=== PATIENT | male | born 1950 | race Caucasian/White ===

== ENCOUNTER → 2021-10-07 09:22 | Outpatient (CLI) | payer MEDICARE, SELFPAY ==
--- NOTE | ~2021-10-07 | XR_ITS ---
EXAMINATION: XR shoulder RT min 2V EXAM DATE: 10/07/2021 09:35 INDICATION: M25.511 - Pain in right shoulder. TECHNIQUE: The following right shoulder projections obtained: frontal projection with internal rotati on, frontal projection with external rotation, Grashey, and axillary (4+ views). There is no prior s tudy for comparison. FINDINGS: There is moderate to severe right glenohumeral joint, moderate acromioclavicular joint prim min osteoarthritis. Calcification along the rotator cuff adjacent to the greater tuberosity, probabl y calcific tendinosis. There are no acute fractures identified. No radiopaque foreign bodies identifi ed. IMPRESSION: 1. 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 2. Calcific tendinosis. Reviewed, dictated and finalized at location B. N ROOM CUSTODIAN
== END ==
PROVIDERS: PCP Family Medicine; Visit Provider Nurse Practitioner Family
DX: M19.011 Primary osteoarthritis, right shoulder (principal); M75.31 Calcific tendinitis of right shoulder
CPT/HCPCS: 73030

== ENCOUNTER → 2022-10-25 10:45 | Outpatient (CLI) | payer MEDICARE, SELFPAY ==
--- NOTE | ~2022-10-25 | US_ITS ---
Renal-Bladder ultrasound Clinical History: UTI Technique: Real-time sonographic imaging of the kidneys and urinary bladder was performed. Findings: The right kidney measures 11.8 cm in length and the left kidney measures 11.8 cm. There is no hydronephrosis or renal calculus identified. Renal cortical echogenicity is within normal limits. No renal mass lesion is identified. The urinary bladder is moderately distended at the time of this exam. There is a 4.7 x 3.7 cm shadowi ng, possibly calcified mass within the urinary bladder. Impression: 4.7 x 3.7 cm shadowing, likely calcified mass in the urinary bladder. Large urinary bladder stone is a likely consideration. Consider CT to further evaluate for soft tissue mass as indicated. Reviewed, dictated and finalized at location . NEL PROCESS SUPERVISOR Impression: 4.7 x 3.7 cm shadowing, likely calcified mass in the urinary bladder. Large uri nary bladder stone is a likely consideration. Consider CT to further evaluate f or soft tissue mass as indicated.
== END ==
PROVIDERS: PCP Family Medicine; Visit Provider Internal Medicine Nephrology
DX: N39.0 Urinary tract infection, site not specified (principal); I10 Essential (primary) hypertension
CPT/HCPCS: 76775

== ENCOUNTER 2022-11-17 08:48 | Outpatient (CLI) | payer MEDICARE, SELFPAY ==
--- NOTE | 2022-11-17 08:57 | ECG_ITS ---
Measurements Intervals [place] Rate: 75 P: 9 WI: 149 QRS: -43 QRSD: 97 T: -14 QT: 401 QTc: 449 Interpretive Statements SINUS RHYTHM LEFT AXIS DEVIATION DELAYED PRECORDIAL R/S TRANSITION VOLTAGE CRITERIA FOR LVH BORDERLINE T WAVE ABNORMALITY- INFERIOR LEADS BASELINE ARTIFACT- I, II, AVR, AVL BORDERLINE ECG NO PREVIOUS ECG AVAILABLE FOR COMPARISON Electronically Signed On 11-17-2022 9:22:47 SCHEDULE CHECKER by Marcio Burton D.O.
== END 2022-11-17 08:49 | disposition home or self-care (01) ==
PROVIDERS: PCP Family Medicine; Visit Provider Urology
DX: I10 Essential (primary) hypertension (principal); Z01.818 Encounter for other preprocedural examination; R94.31 Abnormal electrocardiogram [ECG] [EKG]
CPT/HCPCS: 93005

== ENCOUNTER 2022-11-23 00:42 | Day surgery (SDC) | payer MEDICARE, SELFPAY ==
[2022-11-16 12:08] VITALS: BMI 27.3
--- NOTE | 2022-11-16 12:28 | PC.NURSE ---
Report to the Outpatient Waiting Room, entrance under the green pavilion located off [facility], at time __11:00AM on date ___11/23/22____. Planned Procedure Time: __1:00PM . Time changes happen often and if your time is changed the preop area will call you the afternoon before. - You and your visitor will be asked to self-screen and do not enter if you have any COVID symptoms. - Only one visitor is requested with a max of two and NO children visitors are allowed at this time. - The patient visitor may be requested to leave or wait in car when not with patient due to distancing restrictions. - A mask is optional within the hospital at this time. Patients may have clear liquids (water, carbonated beverages, clear teas, apple juice) until 3 hours prior to surgery with a maximum of 20 ounces. - No food from midnight until time of surgery Take the following medications with a SIP of water the morning of surgery: __AUGMENTIN, CLONIDINE, HYDRALAZINE, METOPROLOL, TRAMADOL NEEDED DO NOT STOP ANY OF YOUR OTHER PRESCRIPTION MEDICATIONS PRIOR TO SURGERY ?EXCEPT THE FOLLOWING Medications to discontinue per physician __HOLD ALL VITAMINS/SUPPLEMENTS AND ASPIRIN 7 DAYS PRE-OP PER DR DAILY (PER PATIENT) Date to take last dose___11/16/22 Please no make-up, nail lao, hairspray, perfume, deodorant, or body powder the day of surgery. No jewelry (including any body piercings) or valuables the day of surgery, leave them at home. Please take a shower or bath the night before, or the morning of, surgery with an antibacterial soap. Wear comfortable, loose fitting clothing. Children are encouraged to wear pajamas. - Jewelry must be removed prior to entering the operating room. Rings and piercings that are not removed may be cut off. - The hospital will not accept responsibility for valuables. - Please leave all valuables, including medications, at home the day of surgery. If you are going home after surgery, a licensed sweeper driver must drive you home. - NO public transportation without another adult if you receive anesthesia. - We recommend that an adult stay with you for 24 hours following discharge. - We also recommend that you do not drive, make important decision, drink alcoholic beverages, or take any drugs that were not prescribed by your health care provider for at least 24 hours after your discharge time. Follow any additional instructions given to you from your surgeon. If you or anyone in your household have experienced Covid symptoms in the past week, please notify your surgeon or the nurse liaison at the phone number below for possible testing. Telephone instructions given to __PATIENT and asked if any additional questions and then verbalized understanding. Patient advised to call surgeon office or pre surgery nurse liaison [phone] if any additional questions.
[2022-11-23] VITALS (11 sets, daily range): BP systolic 140–184; BP diastolic 88–105; PULSE 58–72; RESP 13–20; TEMP 36.1–36.3; O2SAT 97–100
--- NOTE | ~2022-11-23 | XR_ITS ---
EXAMINATION: XR retrograde pyelogram BI DATE: 11/23/2022 12:27 INDICATION: Gross hematuria. TECHNIQUE: 83 intraoperative fluoroscopic images of the abdomen and pelvis were obtained. I was not p resent. Fluoroscopy exposure time was 20 seconds. COMPARISON: Ultrasound 10/25/2022 FINDINGS: There is a large bladder stone. The bilateral retrograde pyelograms are normal. IMPRESSION: 1. Normal bilateral retrograde pyelograms. 2. Large bladder stone. Reviewed, dictated and finalized at location A. TREE FARM WORKER
--- NOTE | 2022-11-23 07:02 | WPDHPUPDATE1 ---
History and Physical Update Update Date/Time: 11/23/22 07:02 History and Physical has been reviewed, including an updated exam of the patient. There are NO changes in the patient's condition. Risks, benefits, and alternatives have been discussed and questions answered. Patient agrees to proceed with procedure.
--- NOTE | 2022-11-23 11:03 | WPDANESEPPF ---
Anes - Initial Pre Proc Eval Procedure: Operation Date: 11/23/22 13:00 Proposed Procedures p Trans Urethral Resection Bladder Tumor - Godfrey Garcia MD s Cystoscopy with Bilateral Retrograde Pyelogram - Godfrey Garcai MD Date/Time: 11/23/22 11:03 Surgeon: Godfrey Garcia MD Pre Op Diagnosis: Gross Hematuria Patient Data Age: 72 Gender: M Height: 1.91 m Weight: 99 kg Allergies Allergy/AdvReac Type Severity Reaction Status Date / Time empagliflozin AdvReac Intermediate UTI's Verified 11/23/22 11:23 [From [facility]ion] Home Medications Medication Instructions Recorded Confirmed Type blood sugar diagnostic (FreeStyle #50 ea 12/20/20 11/23/22 Rx Lite Strips) ascorbic acid (vitamin C) 500 mg 500 mg PO DAILY 11/01/21 11/23/22 History capsule aspirin 81 mg tablet,delayed 81 mg PO DAILY 11/01/21 11/23/22 History release cholecalciferol (vitamin D3) 50 50 mcg PO DAILY 11/01/21 11/23/22 History mcg (2,000 unit) capsule flaxseed oil 250 mg-evening 1 cap PO DAILY 11/01/21 11/23/22 History primrose 125 mg-bilberry 10 mg capsule omega 3,6,9 combination no.7 92 mg 92 mg PO DAILY 11/01/21 11/23/22 History (43 mg-22 [id number]) chew tablet turmeric root extract 500 mg 500 mg PO DAILY 11/01/21 11/23/22 History capsule vitamin E mixed 400 unit capsule 400 unit PO DAILY 11/01/21 11/23/22 History cyanocobalamin (vitamin B-12) 1,000 mcg PO DAILY 01/05/22 11/23/22 History 1,000 mcg tablet (Vitamin B-12) [id number] acid 300 1 tablet PO DAILY 04/10/22 11/23/22 History mcg-lycopene 600 mcg-lutein 300 mcg tablet (Centrum Silver Men) atorvastatin 20 mg tablet 20 mg PO DAILY #30 tabs 05/18/22 11/23/22 Rx tramadol 50 mg tablet 50 mg PO BID PRN pain #30 tabs 08/24/22 11/23/22 Rx metoprolol succinate 200 mg 200 mg PO BID #180 tabs 10/02/22 11/23/22 Rx tablet,extended release 24 hr clonidine HCl 0.2 mg tablet 0.6 mg PO BID #180 tabs 11/14/22 11/23/22 Rx amoxicillin 500 mg-potassium 1 tablet PO Q8H #30 tabs 11/15/22 11/23/22 Rx clavulanate 125 mg tablet (Augmentin) felodipine 10 mg tablet,extended 10 mg PO HS 11/16/22 11/23/22 History release 24 hr metformin 500 mg tablet 1,000 mg PO BID 11/16/22 11/23/22 History semaglutide 7 mg tablet (Rybelsus) 7 mg PO QAM 11/16/22 11/23/22 History valsartan 320 1 tablet PO QAM 11/16/22 11/23/22 History mg-hydrochlorothiazide 25 mg tablet hydralazine 50 mg tablet 50 mg PO TID #90 tabs 11/22/22 11/23/22 Rx Patient hx anesthesia problems: none Family hx anesthesia problems: none Results Review: All pre-operative results and documents have been reviewed as part of the pre-operative evaluation. [facility] Past Medical History Medical History (Updated 11/23/22 @ 11:04 by Jonas Harding, ) Arthritis BMI 27.0-27.9,adult BMI 28.0-28.9,adult BMI 29.0-29.9,adult COVID-19 Essential (primary) hypertension Left knee DJD Liver disease, unspecified Mixed hyperlipidemia EVELINE (obstructive sleep apnea) Primary osteoarthritis of right knee Primary osteoarthritis, right shoulder Type 2 diabetes mellitus without complications Surgical History Surgical History H/O adenoidectomy History of cholecystectomy History of tonsillectomy Status post surgical removal of nail matrix of toe Family History Family History Mother Family history of malignant neoplasm of breast in first degree relative Sibling Hypertension Family history of sleep apnea Father Hypertension Family history of coronary artery disease Sibling No problems noted. Other Cerebrovascular accident Family history of arthritis Family history of cardiovascular disease Social History Social History Smoking status: Never smoker Se
[2022-11-23] MEDS: LACTATED RINGERS 1,000 ML 30 ML IV CONT ×2 (11:20→13:25)
[2022-11-23 11:29] LABS: Glucose Point of Care 290 mg/dl (65-105)
[2022-11-23] MEDS: ceFAZolin 2 GM/D5W 50 ML 2 GM/50 ML BAG IVPB (11:48)
--- NOTE | 2022-11-23 13:25 | W.PM.PROC2 ---
Procedure Note - Detailed Date of Procedure 11/23/22 Pre-op Diagnosis Gross Hematuria Post-op Diagnosis Other (Very large bladder stone) Procedure Performed Cystoscopy with bilateral retrograde pyelography, laser lithotripsy with extraction of a large bladder calculus Surgeon Godfrey Garcia MD Anesthesia General Description of Procedure patient is brought to the operative suite where he is prepped draped in routine sterile fashion while in dorsal lithotomy position after the uneventful induction of a general LMA anesthetic. Cystoscopy is undertaken 1st with a 19 F rigid cystoscope and then later with a 26 F resectoscope. He has significant lateral lobe hyperplasia of the prostate with a small median lobe. Prostatic urethra measures 3 cm. His bladder was trabeculated with cellule and early diverticular formation. He has a single orthotopic ureteral orifice. There was a very large calcified mass in the bladder which, contrary to the appearance on preoperative imaging, is not fixed to the bladder wall and represents a very large, layered bladder stone. Retrograde pyelography shows no evidence of upper urinary tract obstruction filling defects or other identifiable pathology. Using the 200 micron Manjit laser fiber I fractured the stone using hard stone technique. All chips were evacuated. He had minimally bloody urine but I did place a 20 F [address] catheter [address] to irrigation. Tolerated the procedure well was taken recovery room in good condition. Drains Yes Pathology None sent Complications No immediate complications Condition Stable Disposition PACU
--- NOTE | 2022-11-23 14:08 | SUR.PHASEI ---
DR MCRAE NOTIFIED OF HIGH BLOOD PRESSURE. INSTRUCT PT TO RESUME HOME MEDS AT DISCHARGE.
--- NOTE | 2022-11-23 15:00 | SUR.PHASEII ---
PER DR DAILY FLUSH/IRRIGATE BLADDER AND THEN DC CARR CATHETER AND DISCHARGE PATIENT. PATIENT INSTRUCTED ON IMPORTANCE OF ORAL FLUID INTAKE
[2022-11-23 15:28] LABS: Glucose Point of Care 282 mg/dl (65-105)
== END 2022-11-23 15:54 | disposition home or self-care (01) ==
PROVIDERS: PCP Family Medicine; Visit Provider Urology
PROC: (CPT 52352; 2022-11-23 13:00)
DX: N21.0 Calculus in bladder (principal); R31.0 Gross hematuria; I10 Essential (primary) hypertension; E78.2 Mixed hyperlipidemia; E11.9 Type 2 diabetes mellitus without complications; G47.33 Obstructive sleep apnea (adult) (pediatric); K76.9 Liver disease, unspecified; Z79.82 Long term (current) use of aspirin; Z79.84 Long term (current) use of oral hypoglycemic drugs
CPT/HCPCS: 52318; 74420; 82365; 82948; 88300; A9270; C1758; C1769; J0690; J2405; J2704; J3010; J7120

== ENCOUNTER → 2023-02-26 08:50 | Outpatient (CLI) | payer MEDICARE, SELFPAY ==
--- NOTE | ~2023-02-26 | XR_ITS ---
XR abdomen/kub 1V 02/26/2023 09:18 INDICATION: Urinary tract infection TECHNIQUE: KUB COMPARISON: None FINDINGS: Bowel gas pattern is normal. A moderate colonic fecal loading. There are cholecystectomy cl ips. There are calcified granulomas of the spleen. There is no evidence of free air, mass, organomega ly, ascites or obstruction. No abnormal calculi are seen. The bones appear intact. There is mild-mo derate lumbar spondylosis. IMPRESSION: 1: No acute abdominal abnormality identified. Reviewed, dictated and finalized at location B.
--- NOTE | ~2023-02-26 | CT_ITS ---
EXAMINATION: CT abdomen pelvis wo con DATE: 02/26/2023 09:17 INDICATION: Urinary tract infection, site not specified. TECHNIQUE: Computed tomography (CT) of the abdomen and pelvis was performed without intravenous contr ast. Automated exposure control and iterative reconstruction technique were employed. The dose-length product was 1068.13 mGy-cm. COMPARISON: None. FINDINGS: The visualized portions of the lung bases demonstrate mild atelectasis. Calcified pulmonary nodules are consistent with old granulomatous disease. No pleural effusion. The heart size is normal . There are coronary artery calcifications. No pericardial effusion. The liver is normal. There are c hanges of cholecystectomy. Calcifications in the spleen are consistent with old granulomatous disease . The pancreas, adrenal glands, and kidneys are normal. There is a diverticulum of the bladder on the right. There is wall thickening of the bladder. There are approximately 3 calcifications at the post erior bladder wall measuring up to 9 mm. The prostate is mildly enlarged. There is diverticulosis of the colon without evidence of diverticulitis. There are no dilated loops of bowel. The appendix is no rmal. There are no pathologically enlarged lymph nodes. There is no free intraperitoneal fluid. There is severe lumbar spondylosis and mild thoracic spondylosis. There is mild chronic height loss of mul tiple thoracic vertebral bodies. IMPRESSION: 1. Calcifications at the posterior bladder wall. It is not clear if these findings are intraluminal s tones or bladder wall calcifications. 2. Bladder wall thickening, which may be secondary to chronic outlet obstruction or cystitis. Reviewed, dictated and finalized at location A. IMPRESSION: 1. Calcifications at the posterior bladder wall. It is not clear if these findi ngs are intraluminal stones or bladder wall calcifications. 2. Bladder wall thickening, which may be secondary to chronic outlet obstructio n or cystitis.
== END ==
PROVIDERS: PCP Internal Medicine Nephrology; Visit Provider Urology
DX: N39.0 Urinary tract infection, site not specified (principal); N32.89 Other specified disorders of bladder
CPT/HCPCS: 74018; 74176

== ENCOUNTER 2024-11-20 01:26 | Day surgery (SDC) | payer MEDICARE, SELFPAY ==
[2024-11-10 11:23] VITALS: BMI 25.0
--- OUTSIDE RECORDS SUMMARY | 2024-11-20 01:28 | XMS_ITS | Patient Health Summary ---
Author Organization [facility] Process Data Control Address [address] [place] [address] Care Team Providers Care Answering Service Agent Name Role Phone Brent Villagran MD Primary Care Provider [phone] Note from [facility],non-owned Affiliates and Associated Physician Practices is amultiple site organization consisting of ambulatory clinics and hospital sitesin [place], [place], [place] and [place]. This disclosure is being madepursuant to the Care Everywhere program and may not contain all information available regarding this patient. Last updated 18.[facility] Allergies No known active allergies Medications * Be aware that medications may not be up to date on this document. Alwaysverify current medications with the patient. * cloNIDine (CATAPRES) 0.1 MG tablet(Started 06/05/2016) Take 0.1 mg by mouth BID. * Oxymetazoline HCl (NASAL SPRAY) 0.05 %(Started 06/05/2016) Mccormick into the nose. * multivitamins (ONE A DAY) capsule(Started 06/05/2016) Take 1 capsule by mouth DAILY. * felodipine CR 24hr (PLENDIL) 10 MG tablet(Started 06/05/2016) Take 10 mg by mouth. * niacin, Immediate Release, 500 MG tablet(Started 06/05/2016) Take 500 mg by mouth. * valsartan-hydroCHLOROthiazide (DIOVAN HCT) 320-25 MG tablet(Started 06/05/2016) Take 1 tablet by mouth DAILY. * metoprolol succinate XL 24hr (TOPROL XL) 200 MG tablet(Started 06/05/2016) Take 200 mg by mouth. * aspirin (ASPIRIN) 81 MG tablet(Started 06/05/2016) Take 81 mg by mouth. * metFORMIN (GLUCOPHAGE) 500 MG tablet(Started 06/05/2016) Take 500 mg by mouth 2 times daily with morning and evening meal. * Coconut Oil-Flaxseed Oil 500-500 MG(Started 06/05/2016) Take by mouth. * CPAP Inhale 1 device by mouth * Cholecalciferol (VITAMIN D3) 400 UNITS Take 1 capsule by mouth once daily * Turmeric 500 MG Take by mouth 2 times daily * Naproxen Sodium (ALEVE) 220 MG Take by mouth every 12 hours as needed * Ascorbic Acid (VITAMIN C) 500 MG Take by mouth 2 times daily Active Problems Problem Noted Date Diagnosed Date Hypertension 05/26/2018 EVELINE on CPAP 05/26/2018 Type 2 diabetes mellitus 05/26/2018 Gilbert's syndrome 06/08/2016 Obesity 06/05/2016 Hyperlipidemia 06/05/2016 NAFLD (nonalcoholic fatty liver disease) 016 Social History Tobacco Use Types Packs/Day Years Used Date Smoking Tobacco: Never Smokeless Tobacco: Never Alcohol Use Standard Drinks/Week Comments Yes 0 (1 standard drink = 0.6 oz pur e alcohol) 4 beers summer Sex and Gender Information Value Date Recorded Sex Assigned at Not on file Gender Identity Not on file Sexual Orientation Not on file Last Filed Vital Signs Vital Sign Reading Time Taken Comments Blood Pressure 138/88 06/07/2020 9:10 AM CDT Pulse 72 06/07/2020 9:10 AM CDT Temperature 36.7 ??C (98.1 ??F) 06/07/2020 9:10 AM CD T Respiratory Rate 16 06/07/2020 9:10 AM CDT Oxygen Saturation 100% 06/07/2020 9:10 AM CDT Inhaled Oxygen Concentration - - Weight 109.5 kg (241 lb 8 oz) 06/07/2020 9:10 AM CDT Height 190.5 cm (6' 3 ) 06/07/2020 9:10 AM CDT Body Mass Index 30.19 06/07/2020 9:10 AM CDT Procedures * GA LIVER ELASTOGRAPHY(Performed 06/07/2020) Performed for NAFLD (nonalcoholic fatty liver disease) * LIPID PROFILE (EXTERAL RESULT ENTRY)(Performed 05/27/2020) * CBC W DIFF (EXTERNAL RESULT ENTRY)(Performed 05/27/2020) * COMP MET PANEL (EXTERNAL RESULT ENTRY)(Performed 05/27/2020) * GA LIVER ELASTOGRAPHY(Performed 06/02/2019) Performed for NAFLD (nonalcoholic fatty liver disease) * PSA TOTAL (EXTERNAL RESULT ENTRY)(Performed 05/21/2018) * CBC W DIFF (EXTERNAL RESULT ENTRY)(Performed 05/21/2018) * TSH (EXTERNAL RESULT ENTRY)(Performed 05/21/2018) * CHEM PROFILE (EXTERNAL RESULT ENTRY)(Performed 05/21/2018) * LIPID PROFILE (EXTERAL RESULT ENTRY)(Performed 05/21/2018) * COPPER URINE(Performed 06/07/2017) * COMPREHENSIVE METABOLIC PANEL(Performed 06/04/2017) * BILIRUBIN DIRECT(Performed 06/04/2017) * CBC W AUTO DIFFERENTIAL(Performed 06/04/2017) * PT-INR [facility](Performed 06/04/2017) * EUXRI-9-[id number] BLOOD PHENOTYPING PANEL(Performed 06/07/2016) * SMOOTH MUSCLE ANTIBODY(Performed 06/07/2016) * EZRA BLOOD SCREEN W/REFLEX TITER(Performed 06/07/2016) * CERULOPLASMIN(Performed 06/07/2016) * YMNQH-3-JGKBPVFWJXF BLOOD(Performed 06/07/2016) * HEPATITIS C AB W/RFLX TO HCV RNA QN PCR(Performed 06/07/2016) * HEPATITIS B SURFACE ANTIBODY(Performed 06/07/2016) * HEPATITIS B CORE ANTIBODY TOTAL(Performed 06/07/2016) * HEPATITIS B SURFACE ANTIGEN W RFLX CONFIRMATION(Performed 06/07/2016) * HEPATITIS A ANTIBODY(Performed 06/07/2016) * COMPREHENSIVE METABOLIC PANEL(Performed 06/07/2016) * BILIRUBIN DIRECT(Performed 06/07/2016) * IRON + TIBC PANEL(Performed 06/07/2016) * CBC W AUTO DIFFERENTIAL(Performed 06/07/2016) * PT-INR [facility](Performed 06/07/2016) Results * PROC FIBROSCAN (06/07/2020 9:08 AM CDT) Narrative Mahamed Dickey MD - 06/07/2020 9:08 AM CDT Mahamed Dickey MD ? 06/07/2020 12:45 PM Diagnosis: NAFLD RN verified patient has no implanted devices and NPO for prior 3 hours. Vital signs taken, procedure explained and consent signed. Date of Exam: 06/07/2020 Liver Stiffness: (LSM, kPa) median: ??6.9 IQR (interquartile range): ?? 1.8 IQR/Median% (ideally < 30%): ??26 CAP (controlled attenuation parameter): ??330 Technical Difficulty: None Ordering Provider: Dr. Mahamed Dickey Phone Fax Fibroscan interpretation: I have personally reviewed the Fibroscan report and associated tracings. The calculated Liver Stiffness Measurement (LSM, kPa) indicates that: The probability of advanced liver fibrosis is: low. The loss of ultrasound signal, (controlled attenuation parameter, CAP [dB/m]), indicates that the probability of hepatic steatosis is: high. Mahamed Dickey MD The following criteria are used to indicate the probability of advanced (stage 3-4) fibrosis: < 7.0 kPa: low 7.0-8.9 kPa: low to moderate 9.0-14.9 kPa: moderate 15-20 kPa: high > 20 kPa: very high Liver stiffness > 20 kPa is also associated with a high probability of complications of portal hypertension including varices and ascites. Liver stiffness > 50 kPa is associated with a high risk of variceal bleeding. These interpretations are based on the following published data: Zenaida PJ, Gurwinder M, Shanna M, et al. Accuracy of FibroScan controlled attenuation parameter and liver stiffness measurement in assessing steatosis and fibrosis in patients with nonalcoholic fatty liver disease. Gastroenterology 2019;156:0170-0064. Funmilayo MS, Austin R, Van Hellen ML, et al. Vibration-controlled transient elastography to assess fibrosis and steatosis in patients with nonalcoholic fatty liver disease. Clin Gastroenterol Hepatol 2019;17:156-163. Note: 1. Fibroscan cannot reliably identify earlier stages of fibrosis (ie distinguish F0 from F1 and F2) and thus a histologic stage cannot be predicted from the Fibroscan reading. 2. Assessing the likelihood of advanced fibrosis in patients with indeterminate liver stiffness measurement (LSM) by Fibroscan (e.g., 8-15 kPa) can be improved by also calculating the FIB4 score (Brett et al. Hepatology Communications 2019;3:0459-5315) or NAFLD Fibrosis score (Patino et al. Clinical Gastroenterology and Hepatology 2019;17:4311-6632. from routine clinical data. 3. Liver stiffness can be increased by factors other than fibrosis including passive congestion, infiltrative processes, active alcoholism, biliary obstruction and marked inflammation. The interpretation of the Fibroscan result provided above may not have taken such clinical factors into account. Disease etiology also influences Fibroscan cutoff values for fibrosis stages and the following cutoffs have been proposed (Bahman et al, Clin Gastro Hepatol 2015; 13:27-36): Cutoffs for Stage 3 and Stage 4 fibrosis respectively: Hepatitis B: >9 and >11.7 kPa Hepatitis C: >9.5 and >12.5 kPa HCV-HIV: >11 and >14 kPa Cholestatic liver diseases: >10 and >17.9 kPa NAFLD/VÁSQUEZ: >10 and >14 kPa CAP estimates of steatosis: normal <200 dB/m mild 200 to 250 dB/m moderate 250-290 dB/m substantial > 290 dB/m (Note that Fibroscan is not a quantitative measure of liver fat.) These criteria are estimates and may change as additional supporting data becomes available. [email or web address] Mahamed Gray MD PROCEDURE/ MINOR SURGICAL ORDERABLES * CBC W DIFF (EXTERNAL RESULT ENTRY) (05/27/2020 10:26 AM CDT) Only the most recent of2 resultswithin the time period is included. WBC (EXTERNAL RESULT) 4.5 3.8 - 10.8 10^3/ul Hemoglobin (EXTERNAL RESULT) 14.9 13.2 - 17.1 g/dl Hematocrit (EXTERNAL RESULT) 43.9 38.5 - 50.0 % Platelets (EXTERNAL RESULT) 243 140 - 400 10^3/ul Neutrophil Absolute (EXTERNAL RESULT) Blood BLOOD SPECIMEN / Unknown 05/27/2020 10:26 AM CDT Historical Provider LAB - HEMATOLOGY ORDERABLES * (ABNORMAL) COMP MET PANEL (EXTERNAL RESULT ENTRY) (05/27/2020 10:26 AM CDT) Glucose (EXTERNAL) 164(A) 65 - 99 mg/dL Sodium (EXTERNAL RESULT) 141 135 - 145 mmol/L Potassium (EXTERNAL RESULT) 4.2 3.5 - 5.3 mmol/L Chloride (EXTERNAL RESULT) 102 98 - 110 mmol/L CO2 (EXTERNAL) 32 20 - 32 mmol/L Calcium (EXTERNAL RESULT) 9.5 8.6 - 10.3 mg/dL Anion Gap (EXTERNAL RESULT) BUN (EXTERNAL RESULT) 20 7 - 25 mg/dL Creatinine (EXTERNAL RESULT) 0.88 0.70 - 1.25 mg/dl Alkaline Phosphatase (EXTERNAL RESULT) 51 35 - 144 U/L ALT (EXTERNAL RESULT) 56(A) 9 - 46 U/L AST (EXTERNAL RESULT) 27 10 - 35 U/L Protein Total (EXTERNAL RESULT) 6.6 6.1 - 8.1 gm/dL Albumin (EXTERNAL RESULT) 4.4 3.6 - 5.1 gm/dL Bilirubin Total (EXTERNAL RESULT) 2.3(A) 0.02 - 1.2 mg/dL eGFR MDRD (EXTERNAL RESULT) 89 >/=60 mL/min/1.7 3m2 eGFR (EXTERNAL) Blood BLOOD SPECIMEN / Unknown 05/27/2020 10:26 AM CDT Historical Provider LAB - CHEMISTRY O COLLIN * LIPID PROFILE (EXTERAL RESULT ENTRY) (05/27/2020 10:26 AM CDT) Only the most recent of2 resultswithin the time period is included. Cholesterol (EXTERNAL RESULT) 159 <200 mg/dL Triglycerides (EXTERNAL RESULT) 288 <150 mg/dL HDL (EXTERNAL RESULT) 28 >40 mg/dL LDL (EXTERNAL RESULT) 90 <100 mg/dL VLDL (EXTERNAL RESULT) Chol HDL Ratio (External Result) 5.7 <5.0 Blood BLOOD SPECIMEN / Unknown 05/27/2020 10:26 AM CDT Historical Provider LAB - CHEMISTRY O COLLIN * GA LIVER ELASTOGRAPHY (06/02/2019 11:14 AM CDT) Narrative Mahamed Dickey MD - 06/02/2019 11:14 AM CDT Mahamed Dickey MD ? 06/02/2019 11:14 AM Diagnosis: NAFLD RN verified patient has no implanted devices and NPO for prior 3 hours. Vital signs taken, procedure explained and consent signed. Date of Exam: 06/02/2019 Liver Stiffness: (E, kPa) median: ??7.7 IQR (interquartile range): ?? 1.1 IQR/Median% (ideally < 30%): ??14 CAP (controlled attenuation parameter): ??386 Technical Difficulty: None Ordering Provider: Mahamed Dickey MD Phone Fax Fibroscan interpretation: I have personally reviewed the Fibroscan report and associated tracings. The calculated liver stiffness (E, kPa) indicates that: The probability of advanced liver fibrosis is: low to moderate. The loss of ultrasound signal, (controlled attenuation parameter, CAP [dB/m]), indicates that the probability of hepatic steatosis is: high. Mahamed Dickey MD The following criteria are used to indicate the probability of advanced (stage 3-4) fibrosis: < 7.0 kPa: low 7.0-8.9 kPa: low to moderate 9.0-14.9 kPa: moderate 15-20 kPa: high > 20 kPa: very high Liver stiffness > 20 kPa is also associated with a high probability of complications of portal hypertension including varices and ascites. Liver stiffness > 50 kPa is associated with a high risk of variceal bleeding. Note: Liver stiffness is increased by factors other than fibrosis including passive congestion, infiltrative processes, active alcoholism, biliary obstruction and marked inflammation. The interpretation of the Fibroscan result provided above may not have taken such factors into account. Disease etiology also influences Fibroscan cutoff values for fibrosis stages and the following cutoffs have been proposed (Bahman et al, Clin Gastro Hepatol 2015; 13:27-36): Cutoffs for Stage 3 and Stage 4 fibrosis respectively: Hepatitis B: >9 and >11.7 kPa Hepatitis C: >9.5 and >12.5 kPa HCV-HIV: >11 and >14 kPa Cholestatic liver diseases: >10 and >17.9 kPa NAFLD/VÁSQUEZ: >10 and >14 kPa CAP estimates of steatosis: normal <200 dB/m maybe present 200 to 250 dB/m moderate 250-300 dB/m substantial > 300 dB/m (Note that Fibroscan is not a quantitative measure of liver fat and the risk of NAFLD progression is unrelated to the degree of steatosis.) These criteria are estimates and may change as additional supporting data becomes available. [email or web address] Mahamed Gray MD PROCEDURE/ MINOR SURGICAL ORDERABLES * (ABNORMAL) CHEM PROFILE (EXTERNAL RESULT ENTRY) (05/21/2018) Glucose (EXTERNAL RESULT) 186(A) 65 - 99 mg/dl BUN (EXTERNAL RESULT) 25 7 - 25 mg/dl Creatinine (EXTERNAL RESULT) 1.06 0.70 - 1.25 mg/dl Sodium (EXTERNAL RESULT) 141 135 - 146 mmol/L Potassium (EXTERNAL RESULT) 4.0 3.5 - 5.3 mmol/L Chloride (EXTERNAL RESULT) 100 98 - 110 mmol/L Carbon Dioxide (EXTERNAL RESULT) 25 20 - 31 mmol/L Calcium (EXTERNAL RESULT) 10.0 8.6 - 10.3 mg/dl Phosphorus (EXTERNAL RESULT) mg/dl Total Protein (EXTERNAL RESULT) 7.4 6.1 - 8.1 g/dl Albumin (EXTERNAL RESULT) 4.8 3.6 - 5.1 g/dl Alkaline Phosphatase (EXTERNAL RESULT) 50 40 - 115 U/L ALT (EXTERNAL RESULT) 76(A) 9 - 46 units/L AST (EXTERNAL RESULT) 39(A) 10 - 35 units/L Bilirubin Total (EXTERNAL RESULT) 2.2(A) 0.2 - 1.2 mg/dl Bilirubin Direct (EXTERNAL RESULT) mg/dl Bilirubin Indirect (EXTERNAL RESULT) mg/dl Magnesium (EXTERNAL RESULT) mg/dl Blood BLOOD SPECIMEN / Unknown 05/21/2018 Historical Provider LAB - CHEMISTRY O RDERABLES * PSA TOTAL (EXTERNAL RESULT ENTRY) (05/21/2018) PSA Total (EXTERNAL RESULT) 0.5 0.00 - 4.00 NG/ML Blood BLOOD SPECIMEN / Unknown 05/21/2018 Historical Provider LAB - CHEMISTRY O RDERABLES * TSH (EXTERNAL RESULT ENTRY) (05/21/2018) TSH (EXTERNAL RESULT) 4.04 0.40 - 4.50 uIU/mL Blood BLOOD SPECIMEN / Unknown 05/21/2018 Historical Provider LAB - CHEMISTRY O RDERABLES * COPPER URINE (06/07/2017 8:36 AM CDT) Copper Urine 38 15 - 60 mcg/24h [facility] ([facility]) Volume (UVOL) 2000 mL [facility]) Comment: This test was developed and its analytical performance characteristics have been determined by [facility]. It has not been cleared or approved by the US Food and Drug Administration. This assay has been validated pursuant to the CLIA regulations and is used for clinical purposes. REPORT COMMENT: SPLIT 06/04/2017 FROM [id number] Test Performed at: [employer] [facility] [id number] [place] [address] ??[phone] JULISSA DWYER MD,FCAP 06/07/2017 8:36 AM CDT 06/07/2017 8:37 AM CDT Mahamed Gray MD LAB - URIN E CHEMISTRY ORDERABLES [facility]) * PT-INR [facility] (06/04/2017 8:29 AM CDT) Only the most recent of2 resultswithin the time period is included. INR 1.1 [facility] ([facility]) Comment: Reference Range ? 0.9-1.1 Moderate-intensity Warfarin Therapy 2.0-3.0 Higher-intensity Warfarin Therapy ?? 3.0-4.0 PT 11.2 9.0 - 11.5 sec [facility]) Comment: For more information on this test, go to: http://education.[employer]Space[employer]/faq/XDF344 REPORT COMMENT: IS PATIENT ON HEPARIN, ARGATROBAN OR DABIGATRAN?->N FASTING:YES COLLECTION KIT GIVEN TO PATIENT. PATIENT ADVISED Test Performed at: [employer] ??[phone] KERRI FERNANDEZ MD 06/04/2017 8:29 AM CDT 06/04/2017 8:32 AM CDT Mahamed Gray MD LAB - COAG ULATION ORDERABLES [facility] ([facility]) * CBC W AUTO DIFFERENTIAL (06/04/2017 8:29 AM CDT) Only the most recent of2 resultswithin the time period is included. WBC 5.7 3.8 - 10.8 Thousand/u L [facility]) RBC 5.62 4.20 - 5.80 Million/uL [facility]) Hemoglobin 15.9 13.2 - 17.1 g/dL [facility]) Hematocrit 46.6 38.5 - 50.0 % [facility]) MCV 82.9 80.0 - 100.0 fL [facility]) MCH 28.3 27.0 - 33.0 pg [facility]) MCHC 34.1 32.0 - 36.0 g/dL [facility]) RDW-CV 13.0 11.0 - 15.0 % [facility]) Platelet 254 140 - 400 Thousand/u L [facility] ([facility]) MPV 9.8 7.5 - 12.5 fL [facility]) Neutrophils Absolute 3,443 1,500 - 7,800 cells/uL [facility] ([facility]) Lymphocyte Absolute Manual 1,550 850 - 3,900 cells/uL [facility]) Monocytes Absolute 371 200 - 950 cells/uL [facility] ([facility]) Eosinophils Absolute 274 15 - 500 cells/uL [facility]) Basophil Absolute Manual 63 0 - 200 cells/uL [facility]) Neutrophils % 60.4 % [facility]) Lymphocytes % 27.2 % [facility]) Monocytes % 6.5 % [facility]) Eosinophils % 4.8 % [facility]) Basophil % 1.1 % [facility]) Comment: REPORT COMMENT: IS PATIENT ON HEPARIN, ARGATROBAN OR DABIGATRAN?->N FASTING:YES COLLECTION KIT GIVEN TO PATIENT. PATIENT ADVISED Test Performed at: [employer] [facility] [address] [place], [place] ??[phone] АНДРЕЙ LOPEZ DO,MPH 06/04/2017 8:29 AM CDT 06/04/2017 8:32 AM CDT Mahamed Gray MD LAB - SANTOS TOLOGY ORDERABLES [facility] ([facility]) * (ABNORMAL) COMPREHENSIVE METABOLIC PANEL (06/04/2017 8:29 AM CDT) Only the most recent of2 resultswithin the time period is included. Glucose 140(H) 65 - 99 mg/dL [facility] ([facility]) Comment: ? Fasting reference interval For someone without known diabetes, a glucose value >125 mg/dL indicates that they may have diabetes and this should be confirmed with a follow-up test. BUN 17 7 - 25 mg/dL [facility] ([facility]) Creatinine 0.89 0.70 - 1.25 mg/dL [facility]) Comment: For patients >49 years of age, the reference limit for Creatinine is approximately 13% higher for people identified as -[place]. eGFR non- 90 > OR = 60 mL/min/1 .73m2 [facility] ([facility]) eGFR 105 > OR = 60 mL/min/1 .73m2 [facility]) BUN/Creatinine Ratio NOT APPLICABLE 6 - 22 (calc) [facility] ([facility]) Sodium 142 135 - 146 mmol/L [facility]) Potassium 4.2 3.5 - 5.3 mmol/L [facility]) Chloride 101 98 - 110 mmol/L [facility]) CO2 31 20 - 31 mmol/L [facility]) Calcium 10.0 8.6 - 10.3 mg/dL [facility]) Protein Total 7.4 6.1 - 8.1 g/dL [facility]) Albumin 5.1 3.6 - 5.1 g/dL [facility]) Globulin 2.3 1.9 - 3.7 g/dL (calc) [facility]) Albumin/Globulin Ratio 2.2 1.0 - 2.5 (calc) [facility]) Bilirubin Total 1.7(H) 0.2 - 1.2 mg/dL [facility] ([facility]) Alkaline Phosphatase 49 40 - 115 U/L [facility]) AST 33 10 - 35 U/L [facility]) ALT 69(H) 9 - 46 U/L [facility]) Comment: REPORT COMMENT: IS PATIENT ON HEPARIN, ARGATROBAN OR DABIGATRAN?->N FASTING:YES COLLECTION KIT GIVEN TO PATIENT. PATIENT ADVISED Test Performed at: [employer] [facility] [address] [place] [address] ??[phone] АНДРЕЙ LOPEZ DO,MPH 06/04/2017 8:29 AM CDT 06/04/2017 8:32 AM CDT Mahamed Gray MD LAB - CHEM ISTRY ORDERABLES Performing Organization Address City/[facility]/ZIP Co de Phone Number [facility] ([facility]) * (ABNORMAL) BILIRUBIN DIRECT (06/04/2017 8:29 AM CDT) Only the most recent of2 resultswithin the time period is included. Bilirubin Direct 0.3(H) < OR = 0.2 mg/dL [facility] ([facility]) Comment: Test Performed at: [email or web address] [address] [place] [address] ??[phone] АНДРЕЙ LOPEZ DO,MPH 06/04/2017 8:29 AM CDT 06/04/2017 8:32 AM CDT Mahamed Gray MD LAB - CHEM ISTRY ORDERABLES [facility] ([facility]) * HEPATITIS C AB W/RFLX TO HCV RNA QN PCR (06/07/2016 9:07 AM CDT) Hepatitis C Antibody NON-REACTI VE NON-REACT TRINA [facility] ([facility]) Signal/Cutoff 0.03 <1.00 [facility] ([facility]) Comment: Test Performed at: [employer] [facility] [address] [place], [place] ??[phone] АНДРЕЙ LOPEZ DO,MPH 06/07/2016 9:07 AM CDT 06/07/2016 9:07 AM CDT Mahamed Gray MD LAB - CHEM ISTRY ORDERABLES [facility] ([facility]) * EKYJY-8-TGRDRIHVFYP BLOOD PHENOTYPING PANEL (06/07/2016 9:07 AM CDT) Wzmdx-5-Avtppcluy in Phenotype SEE NOTE [facility] ([facility]) Comment: THIS PATIENT'S GQTDL-1-EBBRLEUWGFY PHENOTYPE IS PI*MM. 90% of normal individuals have the MM phenotype, with normal quantitative AAT levels. Many phenotypic patterns have been described, including deficiency states with F, S, Z, or other alleles. As a general estimation, compared to M allele of 100% of normal Y-7-Gzvpiuljesi protein, the S allele produces approximately 60% and the Z allele 20%. For example, an MS phenotype would have about 80% of normal T-2-Wzsgmeabpaz protein level, a 50% contribution from the M allele and 30% from the S allele. A ZZ phenotype would have about 20% of normal levels, a 10% contribution from each Z gene. The F allele has normal T-1-Kxsvpxdqxhq levels, but the kinetics of elastase inhibition is not as efficient as an M allele product; F alleles should be considered functionally mildly deficient. Other variants are identifiable by phenotypic analysis. These include CM, DP, EM, GM, IS, LM, M1M2, M3M3, MP, MT, XX, MY, and M1N. I, P, T and null alleles are considered deleterious. C, D, E, G, L, M1, M2, M3, X and Y alleles are generally considered normal variants. The MZ-Bower phenotype is a normal variant; care should be taken to avoid confusion with the deficient MZ phenotype. REPORT COMMENT: IS PATIENT ON HEPARIN, ARGATROBAN OR DABIGATRAN?->N FASTING:NO Test Performed at: [employer]/[facility] [address] [place], [place] ??[phone] WILIAN KWAN MD PHD Blood specimen (specimen) BLOOD SPECIMEN / Unknown 06/07/2016 9:07 AM CDT 06/07/2016 9:07 AM CDT Mahamed Gray MD LAB - CHEM ISTRY ORDERABLES [facility] ([facility]) * EZRA BLOOD SCREEN W/REFLEX TITER (06/07/2016 9:07 AM CDT) EZRA Screen NEGATIVE NEGATIVE [facility] ([facility]) Comment: REPORT COMMENT: IS PATIENT ON HEPARIN, ARGATROBAN OR DABIGATRAN?->N FASTING:NO Test Performed at: [facility] [place] [place], [place] ??[phone] АНДРЕЙ LOPEZ DO,MPH Blood specimen (specimen) BLOOD SPECIMEN / Unknown 06/07/2016 9:07 AM CDT 06/07/2016 9:07 AM CDT Mahamed Gray MD LAB - CHEM ISTRY ORDERABLES Performing Organization Address [facility]/ZIP Co de Phone Number [facility] ([facility]) * (ABNORMAL) CERULOPLASMIN (06/07/2016 9:07 AM CDT) Ceruloplasmin 15(L) 18 - 36 mg/dL [facility] ([facility]) Comment: REPORT COMMENT: IS PATIENT ON HEPARIN, ARGATROBAN OR DABIGATRAN?->N FASTING:NO Test Performed at: [facility] [place], [place] ??[phone] АНДРЕЙ LOPEZ DO,MPH Blood specimen (specimen) BLOOD SPECIMEN / Unknown 06/07/2016 9:07 AM CDT 06/07/2016 9:07 AM CDT Mahamed Gray MD LAB - CHEM ISTRY ORDERABLES Performing Organization Address [facility]/ZIP Co de Phone Number [facility] ([facility]) * [id number] BLOOD (06/07/2016 9:07 AM CDT) Pathologist [facility] Cnkhd-8-[id number] sin 139 83 - 199 mg/dL [facility] ([facility]) Comment: Test Performed at: [facility] [address] ??[address] АНДРЕЙ LOPEZ DO,MPH Blood specimen (specimen) BLOOD SPECIMEN / Unknown 06/07/2016 9:07 AM CDT 06/07/2016 9:07 AM CDT Mahamed Gray MD LAB - CHEM ISTRY ORDERABLES Performing Organization Address [facility] Phone Number [facility]) * SMOOTH MUSCLE ANTIBODY (06/07/2016 9:07 AM CDT) Actin Antibody IgG <20 <20 U [facility] ([facility]) Comment: Reference Range: ?? <20 U: Negative >or=20 U: Positive ? Antibodies recognizing actin are the main component of smooth muscle antibodies associated with auto- immune liver disease. Actin antibodies are found in approximately 75% of patients with autoimmune hepatitis (AIH) type 1, approximately 65% of patients with autoimmune cholangitis, approximately 30% of patients with primary biliary cirrhosis and approximately 2% of healthy controls. High values are closely correlated with AIH type 1. REPORT COMMENT: IS PATIENT ON HEPARIN, ARGATROBAN OR DABIGATRAN?->N FASTING:NO Test Performed at: [facility] [address] ??[phone] BRIAN RAJAN MD,PHD 06/07/2016 9:07 AM CDT 06/07/2016 9:07 AM CDT Mahamed Gray MD LAB - SERO LOGY ORDERABLES Performing Organization Address City/[facility]/ZIP Co de Phone Number [facility] ([facility]) * IRON + TIBC PANEL (06/07/2016 9:07 AM CDT) Pathologist [facility] Iron 166 50 - 180 mcg/dL [facility] ([facility]) TIBC 395 250 - 425 mcg/dL (calc) [facility]) Iron Saturation 42 15 - 60 % (calc) [facility] ([facility]) Comment: Test Performed at: [facility] [address] [place], [place] ??[address] АНДРЕЙ LOPEZ DO,MPH Serum 06/07/2016 9:07 AM CDT 06/07/2016 9:07 AM CDT Mahamed Gray MD LAB - CHEM ISTRY ORDERABLES Performing Organization Address [facility] Co de Phone Number [facility] ([facility]) * (ABNORMAL) HEPATITIS B SURFACE ANTIBODY (06/07/2016 9:07 AM CDT) Pathologist [facility] Hepatitis B Virus Surface Antibody <5(L) > OR = 10 mIU/mL [facility] ([facility]) Comment: Patient does not have immunity to hepatitis B virus. For additional information, please refer to http://education.ThirdSpaceLearning/faq/MKF514 (This link is being provided for informational/ educational purposes only). REPORT COMMENT: IS PATIENT ON HEPARIN, ARGATROBAN OR DABIGATRAN?->N FASTING:NO Test Performed at: [facility] ??[phone] АНДРЕЙ LOPEZ DO,MPH Blood specimen (specimen) BLOOD SPECIMEN / Unknown 06/07/2016 9:07 AM CDT 06/07/2016 9:07 AM CDT Mahamed Gray MD LAB - CHEM ISTRY ORDERABLES Performing Organization Address [facility]/ZIP Co de Phone Number [facility] ([facility]) * HEPATITIS B CORE ANTIBODY (06/07/2016 9:07 AM CDT) Pathologist [facility] Hepatitis B Core Virus Antibody Total NON-REACTI VE NON-REACT TRINA [facility] ([facility]) Comment: Test Performed at: [facility] [place] [address] [place], [place] ??[phone] АНДРЕЙ LOPEZ DO,MPH Blood specimen (specimen) BLOOD SPECIMEN / Unknown 06/07/2016 9:07 AM CDT 06/07/2016 9:07 AM CDT Mahamed Gray MD LAB - CHEM ISTRY ORDERABLES Performing Organization Address [facility] de Phone Number [facility] ([facility]) * HEPATITIS B SURFACE ANTIGEN W RFLX CONFIRMATION (06/07/2016 9:07 AM CDT) Hepatitis B Virus Surface Antigen NON-REACTI VE NON-REACT TRINA [facility] ([facility]) Comment: Test Performed at: [facility] [place] [address] [place], [place] ??[phone] АНДРЕЙ LOPEZ DO,MPH Blood specimen (specimen) BLOOD SPECIMEN / Unknown 06/07/2016 9:07 AM CDT 06/07/2016 9:07 AM CDT Mahamed Gray MD LAB - CHEM ISTRY ORDERABLES Performing Organization Address [facility] Phone Number [facility]) * HEPATITIS A ANTIBODY (06/07/2016 9:07 AM CDT) Hepatitis A Virus Antibody Total NON-REACTI VE NON-REACT TRINA [facility] ([facility]) Comment: Test Performed at: [facility] [place] [address] [place], [place] ??[phone] АНДРЕЙ LOPEZ DO,MPH Blood specimen (specimen) 06/07/2016 9:07 AM CDT 06/07/2016 9:07 AM CDT Mahamed Gray MD LAB - CHEM ISTRY ORDERABLES Performing Organization Address [facility] Co de Phone Number [facility] ([facility]) Care Teams Answering Service Agent Relationship Specialty Start Date End Date Brent Villagran MD [address] [place] [address] [facility] - General 12/30/15
--- OUTSIDE RECORDS SUMMARY | 2024-11-20 01:28 | XMS_ITS | Clinical Summary ---
Author Organization [facility] Address [address] [place] [address] Care Team Providers Care Telegraphic Typewriter Operator Chief Name Role Phone Brent Villagran MD Primary Care Provider [phone] Source Comments [facility],non-owned Affiliates and Associated Physician Practices is amultiple site organization consisting of ambulatory clinics and hospital sitesin [place], [place], [place] and [place]. This disclosure is being madepursuant to the Care Everywhere program and may not contain all information available regarding this patient. Last updated 18.[facility] Allergies No known active allergies Medications * Be aware that medications may not be up to date on this document. Alwaysverify current medications with the patient. Medication Sig Dispensed Refills Start Date End Date Status cloNIDine (CATAPRES) 0.1 MG tablet Take 0.1 mg by mouth BID. 06/05/2016 Active Oxymetazoline HCl (NASAL SPRAY) 0.05 % [place] into the nose. 06/05/2016 Active multivitamins (ONE A DAY) capsule Take 1 capsule by mouth DAILY. 06/05/2016 Active felodipine CR 24hr (PLENDIL) 10 MG tablet Take 10 mg by mouth. 06/05/2016 Active niacin, Immediate Release, 500 MG tablet Take 500 mg by mouth. 06/05/2016 Active valsartan-hydroCHLOROt hiazide (DIOVAN HCT) 320-25 MG tablet Take 1 tablet by mouth DAILY. 06/05/2016 Active metoprolol succinate XL 24hr (TOPROL XL) 200 MG tablet Take 200 mg by mouth. 06/05/2016 Active aspirin (ASPIRIN) 81 MG tablet Take 81 mg by mouth. 06/05/2016 Active metFORMIN (GLUCOPHAGE) 500 MG tablet Take 500 mg by mouth 2 times daily with morning and evening meal. 06/05/2016 Active Coconut Oil-Flaxseed Oil 500-500 MG Take by mouth. 06/05/2016 Active CPAP Inhale 1 device by mouth Active Cholecalciferol (VITAMIN D3) 400 UNITS Take 1 capsule by mouth once daily Active Turmeric 500 MG Take by mouth 2 times daily Active Naproxen Sodium (ALEVE) 220 MG Take by mouth every 12 hours as needed Active Ascorbic Acid (VITAMIN C) 500 MG Take by mouth 2 times daily Active Active Problems Problem Noted Date Diagnosed Date Hypertension 05/26/2018 EVELINE on CPAP 05/26/2018 Type 2 diabetes mellitus 05/26/2018 Overview (05/26/2018): Overview: Non-insulin dependent. A1C 5.7% in May 2016 Gilbert's syndrome 06/08/2016 Overview (01/21/2018): Total bili in the 2's, direct 0.3 Obesity 06/05/2016 Hyperlipidemia 06/05/2016 Overview (01/21/2018): On niacin, previously on Lipitor d/c 2/ LE paresthesias NAFLD (nonalcoholic fatty liver disease) 016 Overview (06/07/2020): Overview: By ultrasound 06/07/17 Fibroscan CAP 375, E 5.2 kPa 06/02/19 Fibroscan CAP 386, E 7.7 kPa 06/07/20 Fibroscan CAP 330, LSM 6.9 kPa dwp Family History Medical History Relation Name Comments Heart Disease Brother 1 Status: Deceas ed Hypertension Brother 2 Status: Alive Cancer - Colon Brother 3 Hypertension Father Status: d Kidney Stones Father Cancer Mother breast cancer; Status: Relation Name Status Comments Brother 1 Brother 2 Brother 3 Father Mother Social History Tobacco Use Types Packs/Day Years [...] Mass Index 30.19 06/07/2020 9:10 AM CDT Plan of Treatment Health Maintenance Due Date Last Done Comments COLOGUARD (AGES 45-75) - COLON CA SCREENING 1952 COLON MONITORING 1952 COLONOSCOPY - COLON CA SCREENING 1952 CT COLONOGRAPHY - COLON CA SCREENING 1952 Colorectal Cancer Screening 1952 FIT - COLON CA SCREENING 1952 FLEX SIG - COLON CA SCREENING 1952 MEDICARE AWV ? 12 MONTHS 1952 DTAP/TDAP/TD VACCINES (1 - Tdap) 1971 PNEUMOCOCCAL VACCINE 50+ (1 of 2 - PCV) 1971 DIABETES-STATIN 1992 ZOSTER VACCINE (1 of 2) 2002 DIABETES RETINOPATHY SCREENING 05/19/2019 DIABETES-FOOT EXAM WITH MONOFILAMENT 05/19/2019 DIABETES-HGB A1C 05/19/2019 01/29/2017 DIABETES-SERUM CREATININE 05/27/20212019, 05/21/2018, 06/04/2017, Additional history exists COVID-19 VACCINE ( - 2023- season) 2024 INFLUENZA VACCINE (#1) 2024 DEPRESSION SCREENING 10/22/2024 DIABETES - URINE PROTEIN SCREENING 10/22/2024 Respiratory Syncytial Virus (RSV) Vaccine Pt: or over 60 yrs (1 - 1-dose 75+ series) 2027 HEPATITIS C SCREENING Completed 06/07/2016 HEPATITIS B VACCINE Aged Out No longe r eligible based on patient's age to complete this topic HIB VACCINE Aged Out No longer eligi ble based on patient's age to complete this topic HPV VACCINE Aged Out No longer eligi ble based on patient's age to complete this topic MENINGOCOCCAL (Group B) VACCINE Aged Out No longer eligible based on patient's age to complete this topic MENINGOCOCCAL VACCINE Aged Out No ekaterina corey eligible based on patient's age to complete this topic Goals Goal Patient Goal Type Associated Problems Recent Progress Patient-Stated? Author Medication Management General On track( 020 10:07 AM CDT) No Luis Carlos Gao RN Note: Expected end date: Interventions: Take all medications as prescribed Let your doctor know right away about any changes in your medications Make sure to request a refill of your medication at least one week prior to your last dose Procedures Procedure Name Priority Date/Time Associated Diagnosis Comments COMP MET PANEL (EXTERNAL RESULT ENTRY) Routine 05/27/2020 10:26 AM CDT HEPATITIS C AB W/RFLX TO HCV RNA QN PCR Routine 06/07/2016 9:07 AM CDT from Last 3 Months or Most Recently Relevant to Health Maintenance Results * (ABNORMAL) COMP MET PANEL (EXTERNAL RESULT [...] CDT Historical Provider LAB - CHEMISTRY O RDERABLES * HEPATITIS C AB W/RFLX TO HCV RNA QN PCR (06/07/2016 9:07 AM CDT) Hepatitis C Antibody NON-REACTI VE NON-REACT TRINA [facility] ([facility]) Signal/Cutoff 0.03 <1.00 [facility] ([facility]) Comment: Test Performed at: [employer] [facility] ??[phone] АНДРЕЙ LOPEZ DO,MPH 06/07/2016 9:07 AM CDT 06/07/2016 9:07 AM CDT Mahamed Gray MD LAB - CHEM ISTRY ORDERABLES [facility]) from Last 3 Months or Most Recently Relevant to Health Maintenance Care Teams Telegraphic Typewriter Operator Chief Relationship Specialty Start Date End Date Brent Villagran MD [address] [place] [address] PCP - General 12/30/15
--- OUTSIDE RECORDS SUMMARY | 2024-11-20 01:28 | XMS_ITS | Continuity of Care Document ---
Author Organization [facility] Address [address] [address] [address] [place] [address] Phone Care Team Providers Care Housekeeping Staff Name Role Phone Shena NASH, Musa Unavailable [...] Providers Copied on Encounter [facility], [address] [place] [address], [id number], tel:[phone] [facility] No Information 5 Krjocelynn Musa. [address], [address], [place], [place], [id number], [place]. tel:[phone] Referring Provider: Lidya Buchanan OD, [address] [place] [address], [id number]. tel:[phone] [facility], [address] [place] [address], [id number], tel:[phone] [facility] No Information 4 Krishnassayra Musa. [address], [place], [place], [id number], [place]. tel:[phone] Referring Provider: Lidya Buchanan OD, [address] [place] [address], [id number]. tel:[phone] OFFICE/OUTPA TIENT VISIT, [facility], [address] [place] [address], [id number], tel:[phone] [facility] cataract (chief complaint) DM (chief complaint) Posterior subcapsular polar age-related cataract, left eyeOther secondary cataract, right eyeType 2 diabetes mellitus without complicationsV itreous degeneration, bilateralTear film insufficiency of bilateral lacrimal glandsDermatoc halasis of unspecified eye, unspecified eyelidPresence of intraocular lensAge-relate d nuclear cataract, left eyeHyperopia of both eyes 4 Krishnassayra Musa. [address], [place], [place], [id number], [place]. tel:[phone] Referring Provider: Lidya Buchanan OD, [address] [place], [place], [id number]. tel:[phone] OFFICE/OUTPA TIENT VISIT, NEW [facility], [address] [facility] [address], [place], [place], [id number], [place] tel:[phone] [facility] blurry vision (chief complaint) DM II (chief complaint) Tear film insufficiency of bilateral lacrimal glandsAge-rela paulina nuclear cataract, left eyeType 2 diabetes mellitus without complicationsP resence of intraocular lensMyopia, bilateralPoste rior subcapsular polar age-related cataract, left eyeVitreous degeneration, bilateralDerma tochalasis of unspecified eye, unspecified eyelidOther secondary cataract, right eye Shena Musa. [address], [place], [place], [id number], [place]. tel:[phone] Referring Provider: Lidya Buchanan OD, [address], [place], [id number]. tel:[phone] Family History Family Member Type Diagnosis Age At Onset Problem No family history of Macular degeneration Problem No family history of [place] a Payers Payer name Insurance type Covered green party ID Authoriza tion(s) [place] MB [id number] [facility] [id number] Social History Type Description Quantity Date Captured Comments Sex Male Smoking Status No Information Chief Complaint And Reason For Visit No Information Plan Of Treatment Date Type Action Status Referral Referred To: Lidya Buchanan [address] [place], [phone] Ordered: Referrals: Lidya Buchanan. Evaluate and treat [...] every morning at home.Manages by Dr. Chavira Instructions Date Instruction Additional Infor mation Impression/Plan Related to Type 2 diabetes mellitus without complications Impression/Plan Related to Poste rior subcapsular polar age-related cataract, left eye Impression/Plan Related to Other secondary cataract, right eye Impression/Plan Related to Vitre ous degeneration, bilateral Impression/Plan Related to Tear film insufficiency of bilateral lacrimal glands Impression/Plan Related to [place] tochalasis of unspecified eye, unspecified eyelid Impression/Plan [...] Vitre ous degeneration, bilateral Impression/Plan Related to [place] tochalasis of unspecified eye, unspecified eyelid Impression/Plan Related to Poste rior subcapsular polar age-related cataract, left eye Impression/Plan Related to Other secondary cataract, right eye Impression/Plan Related to Type 2 diabetes mellitus without complications Assessments Type Assessment Date No Information
--- OUTSIDE RECORDS SUMMARY | 2024-11-20 01:28 | XMS_ITS | Clinical Summary ---
Author Organization [facility] Address [address] [place] [address]. [place], [place] [address] [place] [address] Care Team Providers Care Cubing Machine Tender Name Role Phone Unavailable Primary Care Provider Unavailabl e Social History Tobacco Use Types Packs/Day Years Used Date Smoking Tobacco: Never Assessed Sex and Gender Information Value Date Recorded Sex Assigned at Not on file Legal Sex Male 6:56 PM CDT Gender Identity Not on file Sexual Orientation Not on file Plan of Treatment Health Maintenance Due Date Last Done Comments Colorectal Cancer Screening Colonoscopy (10 Years) 1952 Hepatitis C 1970 DTaP, Tdap and Td Vaccines ( 1 - Tdap) 1971 Zoster Vaccines (1 of 2) 2002 Pneumococcal Vaccine: 65+ Ye ars (1 of 1 - PCV) 2017 COVID-19 Vaccine ( - 2023-2 5 season) 2024 Influenza Adult (#1) 2024 RSV Immunization or 60+ Years (1 - 1-dose 75+ series) 2027 Meningococcal B Vaccine Aged Out No l onger eligible based on patient's age to complete this topic Meningococcal Vaccine Aged Out No ekaterina corey eligible based on patient's age to complete this topic RSV Immunizations Under 20 Months Aged Out No longer eligible based on patient's age to complete this topic
--- OUTSIDE RECORDS SUMMARY | 2024-11-20 01:28 | XMS_ITS | Clinical Summary ---
Author Organization [facility] Address [address] Sow: Epic Prelude ADT ASH RICARDO [address] Care Team Providers Care Medical Technologist Name Role Phone Non-Staff, Physician Primary Care Provider Unava ilable Allergies No known active allergies Medications metoprolol succinate (TOPROL XL) 100 mg Extended Release 24 hour tablet Take 100 mg by mouth daily. 01/28/2017 Active cloNIDine HCL (CATAPRES) 0.1 mg tablet Take 0.1 mg by mouth 2 times daily. 01/28/2017 Active ondansetron (ZOFRAN ODT) 4 mg Tablet, Rapid Dissolve Take 1 Tablet (4 mg) by mouth every 8 hours as needed for Nausea/Emesis Dissolve tablet on top of tongue, then swallow with saliva.. 45 Tablet 0 01/30/2017 Active valsartan-hydro CHLOROthiazide (DIOVAN HCT) 320-25 mg tablet Take 1 Tablet by mouth daily. 01/28/2017 Active felodipine (PLENDIL) 10 mg Extended Release 24 hour tablet Take 10 mg by mouth daily. 01/28/2017 Active metFORMIN (GLUCOPHAGE) 500 mg tablet Take 500 mg by mouth 2 times daily with meals. 01/28/2017 Active HYDROcodone-ronen taminophen (NORCO) 10-325 mg Tablet Take 1 Tablet by mouth every 4 hours as needed for Pain, Moderate. 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 Gender Identity Not on file Sexual Orientation Not on file Last Filed Vital Signs Vital Sign Reading Time Taken Comments Blood Pressure 152/110 01/31/2017 3:35 AM CDT Pulse 68 01/31/2017 3:35 AM CDT Temperature 36.3 ??C (97.3 ??F) 01/31/2017 3:35 AM CD T Respiratory Rate 18 01/31/2017 3:35 AM CDT Oxygen Saturation - - Inhaled Oxygen Concentration - - Weight 108.3 kg (238 lb 12.8 oz) 01/28/2017 8:49 PM CDT Height 193 cm (6' 4 ) 01/28/2017 8:49 PM CDT Body Mass Index 29.07 01/28/2017 8:49 PM CDT Plan of Treatment Health Maintenance Due Date Last Done Comments COLORECTAL SCREENING 1997 Colorectal Cancer Screening 1997 FIT-DNA Q 3 years 1997 FIT/FOBT Q 1 year 1997 Flex Sig/CT Colonography Q 5 years 1997 PNEUMOCOCCAL VACCINE 65+ YEARS (1 of 1 - PCV) 11/09/19 03 ZOSTER VACCINE (1 of 2) 2002 INFLUENZA VACCINE (#1) 2024 DTAP/TDAP/TD VACCINES (2 - Td or Tdap) 01/28/2027 RSV VACCINE (60+ or ) (1 - 1-dose 75+ series) 2027 Care Teams Medical Technologist Relationship Specialty Start Date End Date Non-Staff, Physician NO ADDRESS ON FILE PCP - General 01/28/17
--- OUTSIDE RECORDS SUMMARY | 2024-11-20 01:28 | XMS_ITS | Referral Summary ---
Author Organization [facility] Address [address] [place] [address] Care Team Providers Care Marketing Strategy Lead Name Role Phone Brent Villagran MD Primary Care Provider [phone] Source Comments [facility],non-owned Affiliates and Associated Physician Practices is amultiple site organization consisting of ambulatory clinics and hospital sitesin [place], [place] and [place]. This disclosure is being madepursuant to the Care Everywhere program and may not contain all information available regarding this patient. Last updated 18.[facility] Allergies No known active allergies Medications * Be aware that medications may not be up to date on this document. Alwaysverify current medications with the patient. Medication Sig Dispensed Refills Start Date End Date Status cloNIDine (CATAPRES) 0.1 MG tablet Take 0.1 mg by mouth BID. 06/05/2016 Active Oxymetazoline HCl (NASAL SPRAY) 0.05 % [place] into the nose. 06/05/2016 Active multivitamins (ONE [...] Fibroscan CAP 330, LSM 6.9 kPa dwp Social History Tobacco Use Types Packs/Day Years [...] 06/07/2020 9:10 AM CDT Plan of Treatment Not on file Goals Goal Patient Goal Type Associated Problems Recent Progress Patient-Stated? Author Medication Management General On track( 020 10:07 AM CDT) Luis Carlos Montero, RN Note: Expected end date: Interventions: Take [...] C Antibody NON-REACTI VE NON-REACT TRINA [facility]) Signal/Cutoff 0.03 <1.00 [facility]) Comment: Test Performed at: [facility] [address] [place], [place] ??[phone] АНДРЕЙ LOPEZ DO,MPH 06/07/2016 9:07 AM CDT 06/07/2016 9:07 AM CDT Mahamed Gray MD LAB - CHEM ISTRY ORDERABLES [facility] ([facility]) from Last 3 Months or Most Recently Relevant to Health Maintenance Care Teams Marketing Strategy Lead Relationship Specialty Start Date End Date Brent Villagran MD [address] [place] [address] PCP - General 12/30/15
[2024-11-20 11:10] VITALS: BP 140/69; PULSE 76; RESP 16; TEMP 36.1; O2SAT 99; BMI 25.4
--- NOTE | 2024-11-20 11:25 | WPDANESEPPF ---
Anes - Initial Pre Proc Eval Procedure: Operation Date: 11/20/24 12:30 Proposed Procedures p Screening Colonoscopy - Rayo Gomez MD Date/Time: 11/20/24 11:25 Surgeon: Rayo Gomez MD Pre Op Diagnosis: neoplasm screenings Patient Data Age: 74 Gender: M Height: 1.91 m Weight: 92.2 kg Last Vital Signs Temp 36.1 C L 11/20/24 11:10 Pulse 76 11/20/24 11:10 Resp 16 11/20/24 11:10 BP 140/69 11/20/24 11:10 Pulse Ox 99 11/20/24 11:10 O2 Del Method Room Air 11/20/24 11:10 Allergies Allergy/AdvReac Type Severity Reaction Status Date / Time empagliflozin (From AdvReac Intermediate UTI's Verified 11/20/24 11:08 Jardiance) Home Medications ?Medication ?Instructions ?Recorded ?Confirmed ?Type blood sugar diagnostic (FreeStyle #50 ea 12/20/20 09/10/24 Rx Lite Strips) ascorbic acid (vitamin C) 500 mg 500 mg PO DAILY 11/01/21 11/20/24 History capsule aspirin 81 mg tablet,delayed 81 mg PO DAILY 11/01/21 11/20/24 History release cholecalciferol (vitamin D3) 50 50 mcg PO DAILY 11/01/21 11/20/24 History mcg (2,000 unit) capsule flaxseed oil 250 mg-evening 1 cap PO DAILY 11/01/21 11/20/24 History primrose 125 mg-bilberry 10 mg capsule omega 3,6,9 combination no.7 92 mg 92 mg PO DAILY 11/01/21 11/20/24 History (43 mg-22 [id number]) chew tablet turmeric root extract 500 mg 500 mg PO DAILY 11/01/21 11/20/24 History capsule vitamin E mixed 400 unit capsule 400 unit PO DAILY 11/01/21 11/20/24 History cyanocobalamin (vitamin B-12) 1,000 mcg PO DAILY 01/05/22 11/20/24 History 1,000 mcg tablet (Vitamin B-12) [id number] 300 mcg-K 60 1 tablet PO DAILY 04/10/22 11/20/24 History mcg-lycop 600 mcg-lutein 300 mcg tablet (Centrum Silver Men) tramadol 50 mg tablet 50 mg PO Q6H PRN pain #30 tabs 07/17/23 11/10/24 Rx hydralazine 50 mg tablet 50 mg PO TID #270 tabs 06/11/24 11/20/24 Rx metoprolol succinate 200 mg 200 mg PO BID #180 tabs 06/11/24 11/20/24 Rx tablet,extended release 24 hr felodipine 10 mg tablet,extended See Rx Instructions .Route 07/07/24 11/20/24 Rx release 24 hr .COMPLEX #90 tabs tamsulosin 0.4 mg capsule 0.4 mg PO Q24H 07/10/24 11/20/24 History atorvastatin 20 mg tablet 20 mg PO DAILY #30 tabs 08/05/24 11/20/24 Rx magnesium citrate 100 mg capsule 100 mg PO DAILY 09/10/24 11/20/24 History zinc acetate 50 mg (zinc) capsule 50 mg PO DAILY 09/10/24 11/20/24 History metformin 500 mg tablet 1,000 mg (2 x 500 mg) PO BID #180 11/01/24 11/20/24 Rx tabs levothyroxine 25 mcg tablet 25 mcg PO DAILY #90 tabs 11/13/24 11/20/24 Rx valsartan 320 1 tablet PO QAM #90 tabs 11/13/24 11/20/24 Rx mg-hydrochlorothiazide 25 mg tablet clonidine HCl 0.2 mg tablet 0.6 mg (3 x 0.2 mg) PO BID #360 11/17/24 11/20/24 Rx tabs Patient hx anesthesia problems: none Family hx anesthesia problems: none Results Review: All pre-operative results and documents have been reviewed as part of the pre-operative evaluation. ON LICENSE OF [facility] Past Medical History Medical History BMI 26.0-26.9,adult BMI 27.0-27.9,adult COVID-19 Primary osteoarthritis, right shoulder Arthritis Left knee DJD BMI 28.0-28.9,adult BMI 29.0-29.9,adult Essential (primary) hypertension Liver disease, unspecified Mixed hyperlipidemia EVELINE (obstructive sleep apnea) Primary osteoarthritis of right knee Type 2 diabetes mellitus without complications Surgical History Surgical History Status post surgical removal of nail matrix of toe History of tonsillectomy History of cholecystectomy H/O adenoidectomy Family History Family History Mother Family history of malignant neoplasm of breast in first degree relative Breast cancer Sibling Hypertension Family history of sleep apnea Father Hypertension Family history of coronary artery disease Heart disease Acute myocardial infarction Sibling Thyroid activity decreased Other Cerebrovascular accident Family history of arthritis Family history of cardiovascular disease Social History Social History Smoking status: Never smoker Second hand tobacco smoke exposure: No Alcohol intake: current Drinks per week: 1 Substance use: never Substance use type: does not use Lack of Transportation: No Lack of Food: Never True Current Housing: I Have Housing Concerned About Future Housing: No Difficulty Paying Gas/Electric Bills: No Difficulty Paying for Meds: No Currently Unemployed: No Education: High School Diploma/GED Difficulty w/ Childcare or Family Care: No Living arrangements: with family Additional living arrangements comments: Occupation/Education: retired Additional occupation/education comments: [employer] Gender identity (if verbalized by the patient): Male Sexual Orientation (if Verbalized by the Patient): Straight or Heterosexual Spiritual care concerns: No Agree to blood products: Yes Anes - Eval Final PreProcedure Day of Procedure 11/20/24 11:25 Patient weight: overweight Heart: regular rate and rhythm Lungs: clear to auscultation Airway: Mallampati scale class II Neurological: alert and oriented Last oral intake: >/= 8 hours ASA classification: III Emergent: no Anesthetic plan: proceed Anesthesia type and monitoring: general GIVS and standard monitoring Results Review: All pre-operative results and documents have been reviewed as part of the pre-operative evaluation. Informed Consent: The patient's anesthetic plan and its attendant risks and benefits were discussed with the patient/family/POA. Questions were solicited and answers provided to the satisfaction of the patient/family/POA.
[2024-11-20] MEDS: LACTATED RINGERS 1,000 ML 150 ML IV CONT (11:26)
[2024-11-20 11:30] LABS: Glucose Point of Care 275 mg/dl (65-105)
--- NOTE | 2024-11-20 11:38 | PM.HPGS ---
History of Present Illness History of Present Illness Consent: Risks, benefits, and alternatives have been discussed and questions answered. Patient agrees to proceed with procedure. Chief complaint: neoplasm screenings Narrative: Adonay Nichole is a 74 year old male here for screening colonoscopy, last one more than 10 years ago Review of Systems Review of Systems: All systems reviewed & are unremarkable except as noted in HPI and below PMFSH Past Medical History Medical History BMI 26.0-26.9,adult BMI 27.0-27.9,adult COVID-19 Primary osteoarthritis, right shoulder Arthritis Left knee DJD BMI 28.0-28.9,adult BMI 29.0-29.9,adult Essential (primary) hypertension Liver disease, unspecified Mixed hyperlipidemia EVELINE (obstructive sleep apnea) Primary osteoarthritis of right knee Type 2 diabetes mellitus without complications Surgical History Surgical History Status post surgical removal of nail matrix of toe History of tonsillectomy History of cholecystectomy H/O adenoidectomy Family History Family History Mother Family history of malignant neoplasm of breast in first degree relative Breast cancer Sibling Hypertension Family history of sleep apnea Father Hypertension Family history of coronary artery disease Heart disease Acute myocardial infarction Sibling Thyroid activity decreased Other Cerebrovascular accident Family history of arthritis Family history of cardiovascular disease Social History Social History Smoking status: Never smoker Second hand tobacco smoke exposure: No Alcohol intake: current Drinks per week: 1 Substance use: never Substance use type: does not use Lack of Transportation: No Lack of Food: Never True Current Housing: I Have Housing Concerned About Future Housing: No Difficulty Paying Gas/Electric Bills: No Difficulty Paying for Meds: No Currently Unemployed: No Education: High School Diploma/GED Difficulty w/ Childcare or Family Care: No Living arrangements: with family Additional living arrangements comments: Occupation/Education: retired Additional occupation/education comments: [employer] Gender identity (if verbalized by the patient): Male Sexual Orientation (if Verbalized by the Patient): Straight or Heterosexual Spiritual care concerns: No Agree to blood products: Yes Meds Home Medications and Allergies Home Medications ?Medication ?Instructions ?Recorded ?Confirmed ?Type blood sugar diagnostic (FreeStyle #50 ea 12/20/20 09/10/24 Rx Lite Strips) ascorbic acid (vitamin C) 500 mg 500 mg PO DAILY 11/01/21 11/20/24 History capsule aspirin 81 mg tablet,delayed 81 mg PO DAILY 11/01/21 11/20/24 History release cholecalciferol (vitamin D3) 50 50 mcg PO DAILY 11/01/21 11/20/24 History mcg (2,000 unit) capsule flaxseed oil 250 mg-evening 1 cap PO DAILY 11/01/21 11/20/24 History primrose 125 mg-bilberry 10 mg capsule omega 3,6,9 combination no.7 92 mg 92 mg PO DAILY 11/01/21 11/20/24 History (43 mg-22 [id number]) chew tablet turmeric root extract 500 mg 500 mg PO DAILY 11/01/21 11/20/24 History capsule vitamin E mixed 400 unit capsule 400 unit PO DAILY 11/01/21 11/20/24 History cyanocobalamin (vitamin B-12) 1,000 mcg PO DAILY 01/05/22 11/20/24 History 1,000 mcg tablet (Vitamin B-12) [id number] 300 mcg-K 60 1 tablet PO DAILY 04/10/22 11/20/24 History mcg-lycop 600 mcg-lutein 300 mcg tablet (Centrum Silver Men) tramadol 50 mg tablet 50 mg PO Q6H PRN pain #30 tabs 07/17/23 11/10/24 Rx hydralazine 50 mg tablet 50 mg PO TID #270 tabs 06/11/24 11/20/24 Rx metoprolol succinate 200 mg 200 mg PO BID #180 tabs 06/11/24 11/20/24 Rx tablet,extended release 24 hr felodipine 10 mg tablet,extended See Rx Instructions .Route 07/07/24 11/20/24 Rx release 24 hr .COMPLEX #90 tabs tamsulosin 0.4 mg capsule 0.4 mg PO Q24H 07/10/24 11/20/24 History atorvastatin 20 mg tablet 20 mg PO DAILY #30 tabs 08/05/24 11/20/24 Rx magnesium citrate 100 mg capsule 100 mg PO DAILY 09/10/24 11/20/24 History zinc acetate 50 mg (zinc) capsule 50 mg PO DAILY 09/10/24 11/20/24 History metformin 500 mg tablet 1,000 mg (2 x 500 mg) PO BID #180 11/01/24 11/20/24 Rx tabs levothyroxine 25 mcg tablet 25 mcg PO DAILY #90 tabs 11/13/24 11/20/24 Rx valsartan 320 1 tablet PO QAM #90 tabs 11/13/24 11/20/24 Rx mg-hydrochlorothiazide 25 mg tablet clonidine HCl 0.2 mg tablet 0.6 mg (3 x 0.2 mg) PO BID #360 11/17/24 11/20/24 Rx tabs Allergies Allergy/AdvReac Type Severity Reaction Status Date / Time empagliflozin (From AdvReac Intermediate UTI's Verified 11/20/24 11:08 Jardiance) Vital Signs Vital Signs - 24 hr 11/20/24 11:10 Temperature 97.0 F L Pulse Rate 76 Respiratory Rate 16 Blood Pressure 140/69 Pulse Oximetry 99 Oxygen Delivery Room Air Exam Const: General: comfortable and no acute distress HENMT: Face/Nose/Sinus: Normal nares present Eyes: General: appearance normal, both eyes and all related structures Neck: Neck: no JVD Resp: Auscultation: clear to auscultation bilaterally Cardio: Rate: regular rate Rhythm: regular rhythm GI: Inspection: non-distended GI Palp: Yes Soft to palpation Skin: General skin exam: normal color Neuro: Speech: normal speech Extrem: General: normal to inspection Psych: Mental Status: mental status grossly normal Assessment and Plan Assessment and plan (1) Screen for colon cancer: Code(s): Z12.11 - Encounter for screening for malignant neoplasm of colon Status: Acute Assessment and Plan: colonoscopy
[2024-11-20 12:00] VITALS: BP 155/90; PULSE 68; RESP 24; O2SAT 99
[2024-11-20 12:10] VITALS: BP 142/86; PULSE 68; RESP 19; O2SAT 99
[2024-11-20 12:20] VITALS: BP 144/82; PULSE 69; RESP 18; O2SAT 100
--- NOTE | 2024-11-21 11:54 | SUR.PHASEII ---
Patient called today 11/21/24 with complaints of bleeding following a bowel movement. Educated patient that some bleeding can be normal following polyp removal during a colonoscopy. Patient did have multiple polyps removed throughout colon. Explained to patient to keep an eye on it, and if it worsens, does not stop, changes at all, or if he has any symptoms of blood loss to go to nearest ER. Patient states he feels great , just worried when he noticed the blood. All questions answered and provided patient with on-call physician #.
== END 2024-11-20 12:30 | disposition home or self-care (01) ==
PROVIDERS: PCP Family Medicine; Referring Provider Nurse Practitioner Family; Visit Provider Internal Medicine Gastroenterology
PROC: 0DJD8ZZ Inspection of Lower Intestinal Tract, Via Natural or Artificial Opening Endoscopic (ICD-10-PCS; CPT 45378; principal; 2024-11-20 12:30)
DX: Z12.11 Encounter for screening for malignant neoplasm of colon (principal); D12.2 Benign neoplasm of ascending colon; D12.3 Benign neoplasm of transverse colon; D12.4 Benign neoplasm of descending colon; D12.5 Benign neoplasm of sigmoid colon; K57.30 Diverticulosis of large intestine without perforation or abscess without bleeding; K64.8 Other hemorrhoids; E11.9 Type 2 diabetes mellitus without complications
CPT/HCPCS: 45385; 82948; 88305; J2704; J7120

== ENCOUNTER 2024-12-31 10:41 | Outpatient (CLI) | payer MEDICARE, SELFPAY ==
--- NOTE | ~2024-12-31 | XR_ITS ---
XR abdomen/kub 1V Ordering provider: Godfrey Garcia MD History: . hx bladder stone . Comparison: February 26, 2023 FINDINGS: BOWEL: Nonobstructive bowel gas pattern. ORGANOMEGALY: None. SIGNIFICANT PATHOLOGIC CALCIFICATIONS: Calcifications seen in the right side of the urinary bladder s uperiorly which may be a stone in the urinary bladder or lower ureter.. OTHER: No free air is seen under the diaphragm. Degenerative changes of the spine. Bilateral sacroili acs. IMPRESSION: NO ACUTE ABDOMINAL FINDINGS. Possible right lower ureteric stone versus urinary bladder stone. Reviewed, dictated and finalized at location A.
--- OUTSIDE RECORDS SUMMARY | 2024-12-31 12:16 | XMS_ITS | Patient Health Summary ---
Author Organization [facility] [employer] Address [address] [place] [address] Care Team Providers Care Crosscutter Rolled Glass Name Role Phone Brent Villagran MD Primary Care Provider [phone] Note from [facility],non-owned Affiliates and Associated Physician Practices is amultiple site organization consisting of ambulatory clinics and hospital sitesin [place], [place], [place] and [place]. This disclosure is being madepursuant to the Care Everywhere program and may not contain all information available regarding this patient. Last updated 18.[facility] Allergies No known active allergies Medications * Be aware that medications may not be up to date on this document. Alwaysverify current medications with the patient. * cloNIDine (CATAPRES) 0.1 MG tablet(Started 06/05/2016) Take 0.1 mg by mouth BID. * Oxymetazoline HCl (NASAL SPRAY) 0.05 %(Started 06/05/2016) [place] into the nose. * multivitamins (ONE A [...] 72 06/07/2020 9:10 AM CDT Temperature 36.7 C (98.1 F) 06/07/2020 9:10 AM CDT Respiratory Rate 16 06/07/2020 9:10 AM CDT Oxygen Saturation 100% 06/07/2020 9:10 AM CDT Inhaled Oxygen Concentration - - Weight 109.5 kg (241 lb 8 oz) 06/07/2020 9:10 AM CDT Height 190.5 cm (6' 3 ) 06/07/2020 9:10 AM CDT Body Mass Index 30.19 06/07/2020 9:10 AM CDT Procedures * ND LIVER ELASTOGRAPHY(Performed 06/07/2020) Performed for NAFLD (nonalcoholic fatty liver disease) * LIPID PROFILE (EXTERAL RESULT ENTRY)(Performed 05/27/2020) * CBC W DIFF (EXTERNAL RESULT ENTRY)(Performed 05/27/2020) * COMP MET PANEL (EXTERNAL RESULT ENTRY)(Performed 05/27/2020) * ND LIVER ELASTOGRAPHY(Performed 06/02/2019) Performed for NAFLD (nonalcoholic [...] DIFFERENTIAL(Performed 06/04/2017) * PT-INR [facility](Performed 06/04/2017) * KJFXQ-6-UZUTCRFGRNT BLOOD PHENOTYPING PANEL(Performed 06/07/2016) * SMOOTH MUSCLE ANTIBODY(Performed 06/07/2016) * EZRA BLOOD SCREEN W/REFLEX TITER(Performed 06/07/2016) * CERULOPLASMIN(Performed 06/07/2016) * BNIRG-6-QDQLHFECTCG BLOOD(Performed 06/07/2016) * HEPATITIS C AB W/RFLX [...] 06/07/2020 9:08 AM CDT Mahamed Dickey MD 06/07/2020 12:45 PM Diagnosis: NAFLD RN verified patient has no implanted devices and NPO for prior 3 hours. Vital signs taken, procedure explained and consent signed. Date of Exam: 06/07/2020 Liver Stiffness: (LSM, kPa) median: 6.9 IQR (interquartile range): 1.8 IQR/Median% (ideally < 30%): 26 CAP (controlled attenuation parameter): 330 Technical Difficulty: None Ordering Provider: Dr. Mahamed [...] patients with nonalcoholic fatty liver disease. Gastroenterology 2019;156:5835-7313. Funmilayo MS, Austin R, Van Hellen ML, [...] improved by also calculating the FIB4 score (Sawe et al. Hepat[employer] Communications 2019;3:8068-6040) or NAFLD Fibrosis score (Patino et al. Clinical Gastroenterology and Hepatology 2019;17:4078-6535. from routine clinical data. 3. Liver stiffness [...] change as additional supporting data becomes available. [email or web address] Mahamed Gray MD PROCEDURE/ MINOR SURGICAL ORDERABLES [...] Provider LAB - CHEMISTRY O COLLIN * ND LIVER ELASTOGRAPHY (06/02/2019 11:14 AM CDT) Narrative Mahamed Dickey MD - 06/02/2019 11:14 AM CDT Mahamed Dickey MD 06/02/2019 11:14 AM Diagnosis: NAFLD RN verified patient has no implanted devices and NPO for prior 3 hours. Vital signs taken, procedure explained and consent signed. Date of Exam: 06/02/2019 Liver Stiffness: (E, kPa) median: 7.7 IQR (interquartile range): 1.1 IQR/Median% (ideally < 30%): 14 CAP (controlled attenuation parameter): 386 Technical Difficulty: None Ordering Provider: Mahamed Dickey [...] change as additional supporting data becomes available. [email or web address] Mahamed Gray MD PROCEDURE/ MINOR SURGICAL ORDERABLES [...] RDERABLES * TSH (EXTERNAL RESULT ENTRY) (05/21/2018) Pathologist [facility] TSH (EXTERNAL RESULT) 4.04 0.40 - 4.50 uIU/mL Blood BLOOD SPECIMEN / Unknown 05/21/2018 Historical Provider LAB - CHEMISTRY O RDERABLES * COPPER URINE (06/07/2017 8:36 AM CDT) [facility] Copper Urine 38 15 - 60 mcg/24h [facility] Volume (UVOL) 2000 mL [facility] Comment: This test was developed and its analytical performance characteristics have been determined by [facility]. It has not been cleared or approved by the US Food and Drug Administration. This assay has been validated pursuant to the CLIA regulations and is used for clinical purposes. REPORT COMMENT: SPLIT 06/04/2017 FROM [id number] Test Performed at: [facility] [address] [address] JULISSA DWYER MD,FCAP 06/07/2017 8:36 AM CDT 06/07/2017 8:37 AM CDT Mahamed Gray MD LAB - URIN E CHEMISTRY ORDERABLES [facility] ([facility]) * PT-INR [facility] (06/04/2017 8:29 AM CDT) Only the most recent of2 resultswithin the time period is included. [facility] INR 1.1 [facility]) Comment: Reference Range 0.9-1.1 Moderate-intensity Warfarin Therapy 2.0-3.0 Higher-intensity Warfarin Therapy 3.0-4.0 PT 11.2 9.0 - 11.5 sec [facility]) Comment: For more information on this test, go to: http://education.[employer]/faq/QGM528 REPORT COMMENT: IS PATIENT ON HEPARIN, ARGATROBAN OR DABIGATRAN?->N FASTING:YES COLLECTION KIT GIVEN TO PATIENT. PATIENT ADVISED Test Performed at: [facility] [address] KERRI FERNANDEZ MD 06/04/2017 8:29 AM CDT 06/04/2017 8:32 AM CDT Mahamed Gray MD LAB - COAG ULATION ORDERABLES [facility]) * CBC W AUTO DIFFERENTIAL (06/04/2017 8:29 AM CDT) Only the most recent of2 resultswithin the time period is included. WBC 5.7 3.8 - 10.8 Thousand/u L [facility]) RBC 5.62 4.20 - 5.80 Million/uL [facility]) Hemoglobin 15.9 13.2 - 17.1 g/dL [facility]) Hematocrit 46.6 38.5 - 50.0 % [facility]) MCV 82.9 80.0 - 100.0 fL [facility]) MCH 28.3 27.0 - 33.0 pg [facility]) MCHC 34.1 32.0 - 36.0 g/dL [facility]) RDW-CV 13.0 11.0 - 15.0 % [facility]) Platelet 254 140 - 400 Thousand/u L [facility]) MPV 9.8 7.5 - 12.5 fL [facility]) Neutrophils Absolute 3,443 1,500 - 7,800 cells/uL [facility]) Lymphocyte Absolute Manual 1,550 850 - 3,900 cells/uL [facility]) Monocytes Absolute 371 200 - 950 cells/uL [facility]) Eosinophils Absolute 274 15 - 500 cells/uL [facility]) Basophil Absolute Manual 63 0 - 200 cells/uL [facility]) Neutrophils % 60.4 % [facility]) Lymphocytes % 27.2 % [facility] Monocytes % 6.5 % [facility]) Eosinophils % 4.8 % [facility] Basophil % 1.1 % [facility]) Comment: REPORT COMMENT: IS PATIENT ON HEPARIN, ARGATROBAN OR DABIGATRAN?->N FASTING:YES COLLECTION KIT GIVEN TO PATIENT. PATIENT ADVISED Test Performed at: [facility] [address] [facility] [address] АНДРЕЙ LOPEZ DO,MPH 06/04/2017 8:29 AM CDT 06/04/2017 8:32 AM CDT Mahamed Gray MD LAB - SANTOS TOLOGY ORDERABLES [facility]) * (ABNORMAL) COMPREHENSIVE METABOLIC PANEL (06/04/2017 8:29 AM CDT) Only the most recent of2 resultswithin the time period is included. Glucose 140(H) 65 - 99 mg/dL [facility]) Comment: Fasting reference interval For someone without known diabetes, a glucose value >125 mg/dL indicates that they may have diabetes and this should be confirmed with a follow-up test. BUN 17 7 - 25 mg/dL [facility]) Creatinine 0.89 0.70 - 1.25 mg/dL [facility]) Comment: For patients >49 years of age, the reference limit for Creatinine is approximately 13% higher for people identified as -Wallisian. eGFR non- 90 > OR = 60 mL/min/1 .73m2 [facility]) eGFR 105 > OR = 60 mL/min/1 .73m2 [facility]) BUN/Creatinine Ratio NOT APPLICABLE 6 - 22 (calc) [facility]) Sodium 142 135 - 146 mmol/L [facility]) Potassium 4.2 3.5 - 5.3 mmol/L [facility]) Chloride 101 98 - 110 mmol/L [facility]) CO2 31 20 - 31 mmol/L [facility]) Calcium 10.0 8.6 - 10.3 mg/dL [facility]) Protein Total 7.4 6.1 - 8.1 g/dL [facility] ([facility]) Albumin 5.1 3.6 - 5.1 g/dL [facility] ([facility]) Globulin 2.3 1.9 - 3.7 g/dL (calc) [facility]) Albumin/Globulin Ratio 2.2 1.0 - 2.5 (calc) [facility]) Bilirubin Total 1.7(H) 0.2 - 1.2 mg/dL [facility]) Alkaline Phosphatase 49 40 - 115 U/L [facility]) AST 33 10 - 35 U/L [facility]) ALT 69(H) 9 - 46 U/L [facility]) Comment: REPORT COMMENT: IS PATIENT ON HEPARIN, ARGATROBAN OR DABIGATRAN?->N FASTING:YES COLLECTION KIT GIVEN TO PATIENT. PATIENT ADVISED Test Performed at: [facility], [place] [address] АНДРЕЙ LOPEZ DO,MPH 06/04/2017 8:29 AM CDT 06/04/2017 8:32 AM CDT Mahamed Gray MD LAB - CHEM ISTRY ORDERABLES Performing Organization Address City/[facility] Co de Phone Number [facility]) * (ABNORMAL) BILIRUBIN DIRECT (06/04/2017 8:29 AM CDT) Only the most recent of2 resultswithin the time period is included. Bilirubin Direct 0.3(H) < OR = 0.2 mg/dL [facility]) Comment: Test Performed at: [facility], [place] [address] АНДРЕЙ LOPEZ DO,MPH 06/04/2017 8:29 AM CDT 06/04/2017 8:32 AM CDT Mahamed Gray MD LAB - CHEM ISTRY ORDERABLES Performing Organization Address City/State/[facility] Co de Phone Number [facility]) * HEPATITIS C AB W/RFLX TO HCV RNA QN PCR (06/07/2016 9:07 AM CDT) Hepatitis C Antibody NON-REACTI VE NON-REACT TRINA [facility]) Signal/Cutoff 0.03 <1.00 [facility]) Comment: Test Performed at: [facility] [employer] [facility] [place] [address] АНДРЕЙ LOPEZ DO,MPH 06/07/2016 9:07 AM CDT 06/07/2016 9:07 AM CDT Mahamed Gray MD LAB - CHEM ISTRY ORDERABLES [facility] ([facility]) * KWHQW-5-TGDNJBLYXWZ BLOOD PHENOTYPING PANEL (06/07/2016 9:07 AM CDT) Nxveu-1-Mwyctykjj in Phenotype SEE NOTE [facility]) Comment: THIS PATIENT'S ZXVLF-8-JUJMTUKMTPP PHENOTYPE IS PI*MM. 90% of normal individuals have the MM phenotype, with normal quantitative AAT levels. Many phenotypic patterns have been described, including deficiency states with F, S, Z, or other alleles. As a general estimation, compared to M allele of 100% of normal C-5-Zzalldxdkaa protein, the S allele produces approximately 60% and the Z allele 20%. For example, an MS phenotype would have about 80% of normal P-5-Alhhwjnuuea protein level, a 50% contribution from the M allele and 30% from the S allele. A ZZ phenotype would have about 20% of normal levels, a 10% contribution from each Z gene. The F allele has normal I-0-Dymaeoitpad levels, but the kinetics of elastase inhibition [...] ARGATROBAN OR DABIGATRAN?->N FASTING:NO Test Performed at: [facility] [address] [place] [address] WILIAN KWAN MD PHD Blood specimen (specimen) BLOOD SPECIMEN / Unknown 06/07/2016 9:07 AM CDT 06/07/2016 9:07 AM CDT Mahamed Gray MD LAB - CHEM ISTRY ORDERABLES Performing Organization Address [facility] Co de Phone Number [facility]) * EZRA BLOOD SCREEN W/REFLEX TITER (06/07/2016 9:07 AM CDT) EZRA Screen NEGATIVE NEGATIVE [facility]) Comment: REPORT COMMENT: IS PATIENT ON HEPARIN, ARGATROBAN OR DABIGATRAN?->N FASTING:NO Test Performed at: [place] [employer] Document Preparation [id number] АНДРЕЙ LOPEZ DO,MPH Blood specimen (specimen) BLOOD SPECIMEN / Unknown 06/07/2016 9:07 AM CDT 06/07/2016 9:07 AM CDT Mahamed Gray MD LAB - CHEM ISTRY ORDERABLES Performing Organization Address [facility] Phone Number [facility]) * (ABNORMAL) CERULOPLASMIN (06/07/2016 9:07 AM CDT) Pathologist [facility] Ceruloplasmin 15(L) 18 - 36 mg/dL [facility]) Comment: REPORT COMMENT: IS PATIENT ON HEPARIN, ARGATROBAN OR DABIGATRAN?->N FASTING:NO Test Performed at: [place] [employer] Document Preparation [id number] АНДРЕЙ LOPEZ DO,MPH Blood specimen (specimen) BLOOD SPECIMEN / Unknown 06/07/2016 9:07 AM CDT 06/07/2016 9:07 AM CDT Mahamed Gray MD LAB - CHEM ISTRY ORDERABLES Performing Organization Address [facility]/ZIP Co de Phone Number [facility]) * TADID-4-IVWAIKYVQDI BLOOD (06/07/2016 9:07 AM CDT) Yylah-0-Bszyqcog sin 139 83 - 199 mg/dL [facility]) Comment: Test Performed at: [facility] [place] [address] [place] [address] АНДРЕЙ LOPEZ DO,MPH Blood specimen (specimen) BLOOD SPECIMEN / Unknown 06/07/2016 9:07 AM CDT 06/07/2016 9:07 AM CDT Mahamed Gray MD LAB - CHEM ISTRY ORDERABLES Performing Organization Address [facility]/ZIP Co de Phone Number [facility]) * SMOOTH MUSCLE ANTIBODY (06/07/2016 9:07 AM CDT) Actin Antibody IgG <20 <20 U [facility]) Comment: Reference Range: <20 U: Negative >or=20 U: Positive Antibodies recognizing actin are the main component [...] ARGATROBAN OR DABIGATRAN?->N FASTING:NO Test Performed at: [facility]/[address] [address] BRIAN RAJAN MD,PHD 06/07/2016 9:07 AM CDT 06/07/2016 9:07 AM CDT Mahamed Gray MD LAB - SERO LOGY ORDERABLES Performing Organization Address City/[facility]/ZIP Co de Phone Number [facility]) * IRON + TIBC PANEL (06/07/2016 9:07 AM CDT) Iron 166 50 - 180 mcg/dL [facility]) TIBC 395 250 - 425 mcg/dL (calc) [facility]) Iron Saturation 42 15 - 60 % (calc) [facility]) Comment: Test Performed at: [facility] [address] [facility] [employer] [address] АНДРЕЙ LOPEZ DO,MPH Serum 06/07/2016 9:07 AM CDT 06/07/2016 9:07 AM CDT Mahamed Gray MD LAB - CHEM ISTRY ORDERABLES Performing Organization Address [facility] Number [facility]) * (ABNORMAL) HEPATITIS B SURFACE ANTIBODY (06/07/2016 9:07 AM CDT) Hepatitis B Virus Surface Antibody <5(L) > OR = 10 mIU/mL [facility]) Comment: Patient does not have immunity to hepatitis B virus. For additional information, please refer to http://education.[employer]/faq/MXY172 (This link is being provided for informational/ educational purposes only). REPORT COMMENT: IS PATIENT ON HEPARIN, ARGATROBAN OR DABIGATRAN?->N FASTING:NO Test Performed at: [facility] [address] [address] [employer] [address] АНДРЕЙ LOPEZ DO,MPH Blood specimen (specimen) BLOOD SPECIMEN / Unknown 06/07/2016 9:07 AM CDT 06/07/2016 9:07 AM CDT Mahamed Gray MD LAB - CHEM ISTRY ORDERABLES Performing Organization Address [facility] Phone Number [facility] * HEPATITIS B CORE ANTIBODY (06/07/2016 9:07 AM CDT) Pathologist [facility] Hepatitis B Core Virus Antibody Total NON-REACTI VE NON-REACT TRINA [facility]) Comment: Test Performed at: [facility] [id number] [place] [address] АНДРЕЙ LOPEZ DO,MPH Blood specimen (specimen) BLOOD SPECIMEN / Unknown 06/07/2016 9:07 AM CDT 06/07/2016 9:07 AM CDT Mahamed Gray MD LAB - CHEM ISTRY ORDERABLES Performing Organization Address [facility] de Phone Number [facility]) * HEPATITIS B SURFACE ANTIGEN W RFLX CONFIRMATION (06/07/2016 9:07 AM CDT) Hepatitis B Virus Surface Antigen NON-REACTI VE NON-REACT TRINA [facility]) Comment: Test Performed at: [place] [address] АНДРЕЙ LOPEZ DO,MPH Blood specimen (specimen) BLOOD SPECIMEN / Unknown 06/07/2016 9:07 AM CDT 06/07/2016 9:07 AM CDT Mahamed Gray MD LAB - CHEM ISTRY ORDERABLES Performing Organization Address [facility] de Phone Number [facility]) * HEPATITIS A ANTIBODY (06/07/2016 9:07 AM CDT) Hepatitis A Virus Antibody Total NON-REACTI VE NON-REACT TRINA [facility]) Comment: Test Performed at: [place] [address] АНДРЕЙ LOPEZ DO,MPH Blood specimen (specimen) 06/07/2016 9:07 AM CDT 06/07/2016 9:07 AM CDT Mahamed Gray MD LAB - CHEM ISTRY ORDERABLES Performing Organization Address [facility]/ZIP Co de Phone Number [facility]) Care Teams Crosscutter Rolled Glass Relationship Specialty Start Date End Date Brent Villagran MD [address] [place] [address] PCP - General 12/30/15
--- OUTSIDE RECORDS SUMMARY | 2024-12-31 12:16 | XMS_ITS | Referral Summary ---
Author Organization [facility] [employer] Address [address] [place] [address] Care Team Providers Care Farmworker Fruit Name Role Phone Brent Villagran MD Primary Care Provider [phone] Source Comments [facility],non-owned Affiliates and Associated Physician Practices is amultiple site organization consisting of ambulatory clinics and hospital sitesin [place], [place], [place] and [place]. This disclosure is being madepursuant to the Care Everywhere program and may not contain all information available regarding this patient. Last updated 18.[facility] [employer] Allergies No known active allergies Medications * Be aware that medications may not be up to date on this document. Alwaysverify current medications with the patient. Medication Sig Dispensed Refills Start Date End Date Status cloNIDine (CATAPRES) 0.1 MG tablet Take 0.1 mg by mouth BID. 06/05/2016 Active Oxymetazoline HCl (NASAL SPRAY) 0.05 % [place] into the nose. 06/05/2016 Active multivitamins (ONE [...] Problem Noted Date Diagnosed Date Hypertension 05/26/2018 EEVLINE on CPAP 05/26/2018 Type 2 diabetes mellitus [...] C Antibody NON-REACTI VE NON-REACT TRINA [facility]) Signal/Cutoff 0.03 <1.00 [facility]) Comment: Test Performed at: [facility] [address] [place] [address] АНДРЕЙ LOPEZ DO,MPH 06/07/2016 9:07 AM CDT 06/07/2016 9:07 AM CDT Mahamed Gray MD LAB - CHEM ISTRY ORDERABLES [facility]) from Last 3 Months or Most Recently Relevant to Health Maintenance Care Teams Farmworker Fruit Relationship Specialty Start Date End Date Brent Villagran MD [address] [place] [address] PCP - General 12/30/15
--- OUTSIDE RECORDS SUMMARY | 2024-12-31 12:16 | XMS_ITS | Clinical Summary ---
Author Organization [facility] [employer] Address [address] [place] [place] [address] Care Team Providers Care Portfolio Manager Name Role Phone Brent Villagran MD Primary Care Provider [phone] Source Comments [facility] [employer],non-owned Affiliates and Associated Physician Practices is amultiple site organization consisting of ambulatory clinics and hospital sitesin [place], [place], [place] and [place]. This disclosure is being madepursuant to the Care Everywhere program and may not contain all information available regarding this patient. Last updated 18.[facility] [employer] Allergies No known active allergies Medications * Be aware that medications may not be up to date on this document. Alwaysverify current medications with the patient. Medication Sig Dispensed Refills Start Date End Date Status cloNIDine (CATAPRES) 0.1 MG tablet Take 0.1 mg by mouth BID. 06/05/2016 Active Oxymetazoline HCl (NASAL SPRAY) 0.05 % [place] into the nose. 06/05/2016 Active multivitamins (ONE [...] - COLON CA SCREENING 1950 MEDICARE AWV 12 MONTHS 1950 DTAP/TDAP/TD VACCINES (1 - [...] complete this topic MENINGOCOCCAL (Group B) VACCINE SHARED DECISION-MAKING Aged Out No longer eligible based on patient's age to complete this topic MENINGOCOCCAL GROUPS A/C/Y/W VACCINE Aged Out No longer eligible based on patient's age to complete this topic Goals Goal Patient Goal Type Associated Problems Recent Progress Patient-Stated? Author Medication Management General On track( 020 10:07 AM CDT) Luis Carlos Montero RN Note: Expected end date: Interventions: Take [...] C Antibody NON-REACTI VE NON-REACT TRINA [facility]) Signal/Cutoff 0.03 <1.00 [facility]) Comment: Test Performed at: [employer] [address] [place] [address] АНДРЕЙ LOPEZ DO,MPH 06/07/2016 9:07 AM CDT 06/07/2016 9:07 AM CDT Mahamed Gray MD LAB - CHEM ISTRY ORDERABLES [facility]) from Last 3 Months or Most Recently Relevant to Health Maintenance Care Teams Portfolio Manager Relationship Specialty Start Date End Date Brent Villagran MD [address] [place] [address] PCP - General 12/30/15
--- OUTSIDE RECORDS SUMMARY | 2024-12-31 12:16 | XMS_ITS | Clinical Summary ---
Author Organization [facility] Address [address] 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 Gender Identity Not on file Sexual Orientation Not on file Last Filed Vital Signs Vital Sign Reading Time Taken Comments Blood Pressure 152/110 01/31/2017 3:35 AM CDT Pulse 68 01/31/2017 3:35 AM CDT Temperature 36.3 C (97.3 F) 01/31/2017 3:35 AM CDT Respiratory Rate 18 01/31/2017 3:35 AM CDT [...] Colonography Q 5 years 1997 PNEUMOCOCCAL VACCINE 50+ YEARS (1 of 1 - PCV) 11/09/19 03 ZOSTER VACCINE (1 of 2) 2002 INFLUENZA VACCINE (#1) 2024 DTAP/TDAP/TD VACCINES (2 - Td or Tdap) 01/28/2027 RSV VACCINE (60+ or ) (1 - 1-dose 75+ series) 2027 Care Teams Machine Cell Tuber Relationship Specialty Start Date End Date Non-Staff, Physician NO ADDRESS ON FILE PCP - General 01/28/17
--- OUTSIDE RECORDS SUMMARY | 2024-12-31 12:16 | XMS_ITS | Continuity of Care Document ---
Author Organization [facility] Address [address] [place] [address] Phone Care Team Providers Care Tree Inspector Name Role Phone Shena NASH, Musa Unavailable [...] Providers Copied on Encounter [facility], [address] [place] [address], [id number], tel:[phone] 1807 [facility] No Information 5 Krjocelynn Musa. [address], [address], [place], [place], [id number], [place]. tel:[phone] Referring Provider: Lidya Buchanan OD, [address] [place] [address], [id number]. tel:[phone] [facility], [address] [place] [address], [id number], tel:[phone] [facility] No Information 4 Krishnassayra Musa. [address], [address], [place], [place], [id number], [place]. tel:[phone] Referring Provider: Lidya Buchanan OD, [address] [place] [address], [id number]. tel:[phone] OFFICE/OUTPA TIENT VISIT, [facility], [address] [place] [address], [id number], tel:[phone] OPH CONSULT [facility] cataract (chief complaint) DM (chief complaint) Posterior subcapsular polar age-related cataract, left eyeOther secondary cataract, right eyeType 2 diabetes mellitus without complicationsV itreous degeneration, bilateralTear film insufficiency of bilateral lacrimal glandsDermatoc halasis of unspecified eye, unspecified eyelidPresence of intraocular lensAge-relate d nuclear cataract, left eyeHyperopia of both eyes 4 Krishnassayra Musa. [address], [address], [place], [place], [id number], [place]. tel:[phone] Referring Provider: Lidya Buchanan OD, [address] [place], [place], [id number]. tel:[phone] OFFICE/OUTPA TIENT VISIT, NEW [facility], [address], [place], [place], [id number], [place] tel:[phone] OPH CONSULT [facility] blurry vision (chief complaint) DM II (chief complaint) Tear film insufficiency of bilateral lacrimal glandsAge-rela paulina nuclear cataract, left eyeType 2 diabetes mellitus without complicationsP resence of intraocular lensMyopia, bilateralPoste rior subcapsular polar age-related cataract, left eyeVitreous degeneration, bilateralDerma tochalasis of unspecified eye, unspecified eyelidOther secondary cataract, right eye Shena Musa. [address], [address], [place], [place], [id number], [place]. tel:[phone] Referring Provider: Lidya Buchanan OD, [address] [place], [place], [id number]. tel:[phone] Family History Family Member Type Diagnosis Age At Onset Problem No family history of Macular degeneration Problem No family history of [place] a Payers Payer name Insurance type Covered alliance party ID Authoriza tion(s) [place] MB [id number] [id number] Social History Type Description Quantity Date Captured Comments Sex Male Smoking Status No Information Chief Complaint And Reason For Visit No Information Plan Of Treatment Date Type Action Status Referral Referred To: Lidya Buchanan [address] [place], [phone] Ordered: Referrals: Lidya Buchanan. Evaluate and treat [...] of bilateral lacrimal glands Impression/Plan Related to [place] tochalasis of unspecified eye, unspecified eyelid Impression/Plan [...] Vitre ous degeneration, bilateral Impression/Plan Related to [place] tochalasis of unspecified eye, unspecified eyelid Impression/Plan Related to Poste rior subcapsular polar age-related cataract, left eye Impression/Plan Related to Other secondary cataract, right eye Impression/Plan Related to Type 2 diabetes mellitus without complications Assessments Type Assessment Date No Information
--- OUTSIDE RECORDS SUMMARY | 2024-12-31 12:16 | XMS_ITS | Clinical Summary ---
Author Organization [facility] Address [address] [place] [address] Care Team Providers Care Hub Inventory Specialist Name Role Phone Unavailable Primary Care Provider [...]
== END 2024-12-31 10:42 | disposition home or self-care (01) ==
PROVIDERS: PCP Family Medicine; Visit Provider Urology
DX: Z87.448 Personal history of other diseases of urinary system (principal)
CPT/HCPCS: 74018

== ENCOUNTER 2025-01-15 13:22 | Outpatient (CLI) | payer MEDICARE, SELFPAY ==
--- NOTE | ~2025-01-15 | CT_ITS ---
EXAMINATION: CT abdomen pelvis wo con DATE: 01/15/2025 13:46 INDICATION: History of bladder stone TECHNIQUE: Computed tomography (CT) of the abdomen and pelvis was performed without intravenous contr ast. The dose-length product was 446.43 mGy-cm. Automated exposure control and iterative reconstructi on technique were employed. COMPARISON: CT dated 02/26/2023 FINDINGS: status post cholecystectomy. Calcified granuloma spleen. There is dependent atelectasis. He art size normal. The liver, pancreas, adrenal glands and kidneys are unremarkable. No hydronephrosis. Mild bladder wall thickening. Mildly enlarged prostate gland. Normal appendix. There is atherosclero sis of the aorta and mesenteric vessels. No bladder stones are identified. Sclerotic lesion of L2, li george benign bone island. Moderate lumbar spondylosis. Nonobstructive bowel gas pattern. Colonic diver ticulosis without evidence for diverticulitis. Moderate osteoarthritis of the hips. No free air or fr ee fluid. No lymphadenopathy. No evidence for hernia. IMPRESSION: 1. Bladder wall thickening which may be secondary to chronic outlet obstruction or cystitis. No bladd er stones. Reviewed, dictated and finalized at location A. IMPRESSION: 1. Bladder wall thickening which may be secondary to chronic outlet obstruction or cystitis. No bladder stones.
--- OUTSIDE RECORDS SUMMARY | 2025-01-15 14:15 | XMS_ITS | Clinical Summary ---
Author Organization [facility] Address [address] 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
--- OUTSIDE RECORDS SUMMARY | 2025-01-15 14:15 | XMS_ITS | Clinical Summary ---
Author Organization [facility] Address [address] [place] [address] Care Team Providers Care Company Controller Name Role Phone Brent Villagran MD Primary Care Provider [phone] Source Comments [facility],non-owned Affiliates and Associated Physician Practices is amultiple site organization consisting of ambulatory clinics and hospital sitesin [place], [place], [place] and [place]. This disclosure is being madepursuant to the Care Everywhere program and may not contain all information available regarding this patient. Last updated 18.[facility] Allergies No known active allergies Medications * Be aware that medications may not be up to date on this document. Alwaysverify current medications with the patient. Medication Sig Dispensed Refills Start Date End Date Status cloNIDine (CATAPRES) 0.1 MG tablet Take 0.1 mg by mouth BID. 06/05/2016 Active Oxymetazoline HCl (NASAL SPRAY) 0.05 % [place] into the nose. 06/05/2016 Active multivitamins (ONE [...] C Antibody NON-REACTI VE NON-REACT [facility] Signal/Cutoff 0.03 <1.00 [facility] Comment: Test Performed at: [facility] [address] [place] [address] АНДРЕЙ LOPEZ DO,MPH 06/07/2016 9:07 AM CDT 06/07/2016 9:07 AM CDT Mahamed Gray MD LAB - CHEM ISTRY ORDERABLES [facility]) from Last 3 Months or Most Recently Relevant to Health Maintenance Care Teams Company Controller Relationship Specialty Start Date End Date Brent Villagran MD [address] [place] [address] PCP - General 12/30/15
--- OUTSIDE RECORDS SUMMARY | 2025-01-15 14:15 | XMS_ITS | Continuity of Care Document ---
Author Organization [facility] Address [address] [place] [address] Phone Care Team Providers Care Business Solutions Director Name Role Phone Shena NASH, Musa Unavailable [...] Providers Copied on Encounter [facility], [address] [place] [address], [id number], tel:[phone] 1854 [facility] No Information 5 Krjocelynn Musa. [address], [place], [place], [id number], [place]. tel:[phone] Referring Provider: Lidya Buchanan OD, [address] [place] [address], [id number] . tel:[phone] [facility], [address] [place] [address], [id number], tel:[phone] [facility] No Information 4 Krishnasamy Musa. [address] , [address], [place], [place], [id number], [place]. tel:[phone] Referring Provider: Lidya Buchanan OD, [address] [place] [address], [id number] . tel:[phone] OFFICE/OUTPA TIENT VISIT, [facility], [address] [place] [address], [id number], tel:[phone] OPH CONSULT [facility] cataract (chief complaint) DM (chief complaint) Posterior subcapsular polar age-related cataract, left eyeOther secondary cataract, right eyeType 2 diabetes mellitus without complicationsV itreous degeneration, bilateralTear film insufficiency of bilateral lacrimal glandsDermatoc halasis of unspecified eye, unspecified eyelidPresence of intraocular lensAge-relate d nuclear cataract, left eyeHyperopia of both eyes 4 Krishnasamy Musa. [address], [place], [place], [id number], [place]. tel:[phone] Referring Provider: Lidya Buchanan OD, [address] [place], [address] . tel:[phone] OFFICE/OUTPA TIENT VISIT, [facility], [address], [place], [place], [id number], tel:[phone] OPH CONSULT [facility] blurry vision (chief complaint) DM II (chief complaint) Tear film insufficiency of bilateral lacrimal glandsAge-rela paulina nuclear cataract, left eyeType 2 diabetes mellitus without complicationsP resence of intraocular lensMyopia, bilateralPoste rior subcapsular polar age-related cataract, left eyeVitreous degeneration, bilateralDerma tochalasis of unspecified eye, unspecified eyelidOther secondary cataract, right eye Shena Musa. [address], [place], [place], [id number], [place]. tel:[phone] Referring Provider: Lidya Buchanan OD, [address] [place], [address] . tel:[phone] Family History Family Member Type Diagnosis Age At Onset Problem No family history of Macular degeneration Problem No family history of [place] a Payers Payer name Insurance type Covered republican ID Authoriza tion(s) [place] OF [place] MB [id number] [facility] [id number] Social History Type Description Quantity Date Captured Comments Sex Male Smoking Status No Information Chief Complaint And Reason For Visit No Information Reason For Referral Reason For Referral No Information Plan Of Treatment Date Type Action Status Referral Referred To: Lidya Buchanan [address] [place], [phone] Ordered: Referrals: Lidya Buchanan. Evaluate and treat [...] of bilateral lacrimal glands Impression/Plan Related to [place] tochalasis of unspecified eye, unspecified eyelid Impression/Plan [...] Vitre ous degeneration, bilateral Impression/Plan Related to [place] tochalasis of unspecified eye, unspecified eyelid Impression/Plan Related to Poste rior subcapsular polar age-related cataract, left eye Impression/Plan Related to Other secondary cataract, right eye Impression/Plan Related to Type 2 diabetes mellitus without complications Assessments Type Assessment Date No Information Patient Care Teams Name Effective Dates (start - stop) Status Members No Information
== END 2025-01-15 13:23 | disposition home or self-care (01) ==
PROVIDERS: PCP Family Medicine; Visit Provider Urology
DX: N32.89 Other specified disorders of bladder (principal); Z87.448 Personal history of other diseases of urinary system
CPT/HCPCS: 74176

== ENCOUNTER 2025-03-13 12:49 | Outpatient (CLI) | payer MEDICARE, SELFPAY ==
--- NOTE | ~2025-03-13 | US_ITS ---
EXAMINATION: US thyroid DATE: 03/13/2025 13:08 INDICATION: Family history of thyroid cancer TECHNIQUE: Multiple ultrasound images of the thyroid were obtained. COMPARISON: None. FINDINGS: The right thyroid lobe measures 4.3 x 1.5 x 1.7 cm. The left thyroid lobe measures 3.5 x 1.4 x 1.4 cm. Within the left lobe of the thyroid gland is a 4.5 x 3.9 x 2.5 mm nodule: Composition - spongiform Echogenicity - hypoechoic (2) Shape - wider than tall Margin - smooth Echogenic foci - none. = TR2 not suspicious. Within the left lobe of the thyroid gland is a 5.9 x 2.6 x 5.4 mm nodule: Composition - spongiform Echogenicity - hypoechoic (2) Shape - wider than tall Margin - smooth Echogenic foci - none. = TR2 not suspicious. The isthmus measures 0.3cm in anterior to posterior dimension. Within the isthmus of the thyroid gland, to the right of midline is a 4.9 x 3.6 x 5.5 mm nodule: Composition - spongiform Echogenicity - hypoechoic (2) Shape - wider than tall Margin - smooth Echogenic foci - none. = TR2 not suspicious. There is otherwise normal echotexture and echogenicity throughout the remainder of the thyroid gland. No additional discrete nodules identified. Normal vascular flow is present. IMPRESSION: Three TR2 nodules in the left lobe of the thyroid gland and isthmus measuring 5.9 mm in greatest dime nsion. This nodule is not sonographically suspicious and no FNA is recommended Follow-up is not recommended, but may be performed. Reviewed, dictated and finalized at location A. IMPRESSION: Three TR2 nodules in the left lobe of the thyroid gland and isthmus measuring 5 .9 mm in greatest dimension. This nodule is not sonographically suspicious and no FNA is recommended Follow-up is not recommended, but may be performed.
== END 2025-03-13 12:50 | disposition home or self-care (01) ==
PROVIDERS: PCP Internal Medicine Endocrinology, Diabetes & Metabolism; Visit Provider Internal Medicine Endocrinology, Diabetes & Metabolism
DX: E04.2 Nontoxic multinodular goiter (principal); Z80.8 Family history of malignant neoplasm of other organs or systems
CPT/HCPCS: 76536

== ENCOUNTER 2025-07-21 09:31 | Outpatient (CLI) | payer MEDICARE, SELFPAY ==
--- NOTE | ~2025-07-21 | XR_ITS ---
XR abdomen/kub 1V 07/21/2025 09:45 INDICATION: Bladder stone TECHNIQUE: KUB COMPARISON: None FINDINGS: Bowel gas pattern is normal. There is no evidence of free air, mass, organomegaly, ascites or obstruction. No abnormal calculi are seen. There is a pelvic calcification corresponding to phleboliths seen on CT there are calcified granulomas of the spleen. There are cholecystectomy clips. The bones appear intact. IMPRESSION: 1: No acute abdominal abnormality identified. Reviewed, dictated and finalized at location B.
--- NOTE | 2025-07-21 10:05 | ECG_ITS ---
Test Date: 2025-07-21 10:13:56 Measurements Intervals [place] Rate: 61 P: 75 GA: 158 QRS: -30 QRSD: 96 T: -24 QT: 447 QTc: 451 Interpretive Statements SINUS RHYTHM INFERIOR MYOCARDIAL INFARCTION , OF INDETERMINATE AGE [40+ ms Q WAVE AND/OR ST/T ABNORMALITY IN II/aVF] No previous ECG available for comparison Electronically Signed On 07-21-2025 14:43:55 CDT by Eun Manzo M.D.
--- OUTSIDE RECORDS SUMMARY | 2025-07-21 10:16 | XMS_ITS | Clinical Summary ---
Author Organization [facility] Address [address] 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
--- OUTSIDE RECORDS SUMMARY | 2025-07-21 10:16 | XMS_ITS | Clinical Summary ---
Author Organization [facility] Address [address] [place] [address] Care Team Providers Care Principal Security Architect Name Role Phone Brent Villagran MD Primary Care Provider [phone] Source Comments [facility],non-owned Affiliates and Associated Physician Practices is amultiple site organization consisting of ambulatory clinics and hospital sitesin [place], [place], [place] and [place]. This disclosure is being madepursuant to the Care Everywhere program and may not contain all information available regarding this patient. Last updated 18.[facility] Allergies No known active allergies Medications * Be aware that medications may not be up to date on this document. Alwaysverify current medications with the patient. cloNIDine (CATAPRES) 0.1 MG tablet Take 0.1 mg by mouth BID. 06/05/2016 Active Oxymetazoline HCl (NASAL SPRAY) 0.05 % [place] into the nose. 06/05/2016 Active multivitamins (ONE A DAY) capsule Take 1 capsule by mouth DAILY. 06/05/2016 Active felodipine CR 24hr (PLENDIL) 10 MG tablet Take 10 mg by mouth. 06/05/2016 Active niacin, Immediate Release, 500 MG tablet Take 500 mg by mouth. 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 Gender Identity Not on file Sexual Orientation [...] 9:10 AM CDT Height 190.5 cm (6' 3) 06/07/2020 9:10 AM CDT Body Mass Index 30.19 06/07/2020 9:10 AM CDT Plan of Treatment Health Maintenance Due Date Last Done Comments COLOGUARD (AGES 45-75) - COLON CA SCREENING 1952 COLON MONITORING 1952 COLONOSCOPY - COLON CA SCREENING 1952 CT COLONOGRAPHY - COLON CA SCREENING 1950 Colorectal Cancer Screening 1952 FIT - COLON CA SCREENING 1952 FLEX SIG - COLON CA SCREENING 1952 DTAP/TDAP/TD VACCINES (1 - Tdap) 1971 DIABETES-STATIN 1992 PNEUMOCOCCAL VACCINE 50+ (1 of 1 - PCV) 2002 ZOSTER VACCINE (1 of 2) 2002 DIABETES-FOOT EXAM WITH MONOFILAMENT 05/19/2019 DIABETES-HGB A1C 05/19/2019 01/29/2017 DIABETES-SERUM CREATININE 05/27/20212019, 05/21/2018, 06/04/2017, Additional history exists DEPRESSION SCREENING 10/22/2024 DIABETES - URINE PROTEIN SCREENING 10/22/2024 COVID-19 VACCINE ( - season) 2025 INFLUENZA VACCINE (#1) 2025 Respiratory Syncytial Virus (RSV) Vaccine Pt: or [...] SPECIMEN / Unknown 05/27/2020 10:26 AM CDT us Historical Provider LAB - CHEMISTRY ORDERABLE S Final Result * HEPATITIS C AB W/RFLX TO HCV RNA QN PCR (06/07/2016 9:07 AM CDT) Hepatitis C Antibody NON-REACTI VE NON-REACT [facility]) Signal/Cutoff 0.03 <1.00 [facility]) Comment: Test Performed at: [facility] [address] [place] [address] АНДРЕЙ LOPEZ DO,MPH 06/07/2016 9:07 AM CDT 06/07/2016 9:07 AM CDT Mahamed Gray MD LAB - CHEMISTRY OR DERABLES Final Result [facility] [id number] from Last 3 Months or Most Recently Relevant to Health Maintenance Insurance MEDICARE MEDICARE ANTH Care Teams Principal Security Architect Relationship Specialty Start Date End Date Brent Villagran MD [address] [place] [address] PCP - General 12/30/15
== END 2025-07-21 09:32 | disposition home or self-care (01) ==
PROVIDERS: PCP Family Medicine; Visit Provider Urology
DX: I10 Essential (primary) hypertension (principal); R53.83 Other fatigue; I25.2 Old myocardial infarction; Z87.448 Personal history of other diseases of urinary system
CPT/HCPCS: 74018; 93005

== ENCOUNTER 2025-08-12 08:07 | Outpatient (CLI) | payer MEDICARE, SELFPAY ==
--- OUTSIDE RECORDS SUMMARY | 2025-08-12 08:18 | XMS_ITS | Clinical Summary ---
Author Organization [facility] Address [address] [place] [address] Care Team Providers Care Bander Operator Name Role Phone Brent Villagran MD Primary Care Provider [phone] Source Comments [facility],non-owned Affiliates and Associated Physician Practices is amultiple site organization consisting of ambulatory clinics and hospital sitesin [place], [place], [place] and [place]. This disclosure is being madepursuant to the Care Everywhere program and may not contain all information available regarding this patient. Last updated 18.[facility] Allergies No known active allergies Medications * Be aware that medications may not be up to date on this document. Alwaysverify current medications with the patient. cloNIDine (CATAPRES) 0.1 MG tablet Take 0.1 mg by mouth BID. 06/05/2016 Active Oxymetazoline HCl (NASAL SPRAY) 0.05 % [place] into the nose. 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
--- NOTE | 2025-08-12 08:23 | EST_ITS ---
Patient Info Name: Adonay Nichole Age: 74 years : 1950 Gender: Male Ht: 75 in Wt: 213 lbs BSA: 2.27 m2 HR: 68 bpm BP: 141 / 86 mmHg Exam Date: 08/12/2025 8:23 AM Patient Status: O Admit Date: 08/12/2025 Exam Type: CA stress test treadmill A treadmill exercise stress test was performed. Staff Attending Provider: Brent Villagran MD Exercise Technologist: Polly Stephens Exercise Physician: Marcio Burton DO Summary 1. 1. Negative Adán exercise stress test for ischemic ST changes by ECG criteria. 2. 2. Reduced functional capacity, achieving 7 METs of workload. 3. 3. Baseline hypertension. 4. 4. Appropriate HR response to exercise. 5. 5. Appropriate HR recovery at 1 minute post exercise. 6. 6. No imaging with stress testing. 7. 7. Patient informed of the above results. Protocol: Adán Stress ECG Details Stage: REST Duration (min): 0 min : 52 sec Speed (mph): 0.0 Grade (%): 0 HR (bpm): 68 SBP (mmHg): 141 DBP (mmHg): 86 METS: --- Stage: REST Duration (min): 6 min : 24 sec Speed (mph): 0.0 Grade (%): 0 HR (bpm): 79 SBP (mmHg): 141 DBP (mmHg): 86 METS: --- Stage: STAGE 1 Duration (min): 1 min : 0 sec Speed (mph): 1.7 Grade (%): 10 HR (bpm): 126 SBP (mmHg): 141 DBP (mmHg): 86 METS: --- Stage: STAGE 1 Duration (min): 2 min : 0 sec Speed (mph): 1.7 Grade (%): 10 HR (bpm): 119 SBP (mmHg): 141 DBP (mmHg): 86 METS: --- Stage: STAGE 1 Duration (min): 3 min : 0 sec Speed (mph): 1.7 Grade (%): 10 HR (bpm): 117 SBP (mmHg): 141 DBP (mmHg): 86 METS: --- Stage: STAGE 2 Duration (min): 1 min : 0 sec Speed (mph): 2.5 Grade (%): 12 HR (bpm): 124 SBP (mmHg): 202 DBP (mmHg): 124 METS: --- Stage: STAGE 2 Duration (min): 2 min : 0 sec Speed (mph): 2.5 Grade (%): 12 HR (bpm): 121 SBP (mmHg): 192 DBP (mmHg): 118 METS: --- Stage: STAGE 2 Duration (min): 2 min : 2 sec Speed (mph): 2.5 Grade (%): 12 HR (bpm): 123 SBP (mmHg): 192 DBP (mmHg): 118 METS: --- Stage: RECOVERY Duration (min): 0 min : 57 sec Speed (mph): 0.0 Grade (%): 0 HR (bpm): 116 SBP (mmHg): 192 DBP (mmHg): 118 METS: --- Stage: RECOVERY Duration (min): 1 min : 57 sec Speed (mph): 0.0 Grade (%): 0 HR (bpm): 106 SBP (mmHg): 192 DBP (mmHg): 118 METS: --- Stage: RECOVERY Duration (min): 2 min : 57 sec Speed (mph): 0.0 Grade (%): 0 HR (bpm): 96 SBP (mmHg): 186 DBP (mmHg): 93 METS: --- Stage: RECOVERY Duration (min): 3 min : 57 sec Speed (mph): 0.0 Grade (%): 0 HR (bpm): 103 SBP (mmHg): 186 DBP (mmHg): 93 METS: --- Stage: RECOVERY Duration (min): 4 min : 57 sec Speed (mph): 0.0 Grade (%): 0 HR (bpm): 87 SBP (mmHg): 181 DBP (mmHg): 95 METS: --- Stage: RECOVERY Duration (min): 5 min : 57 sec Speed (mph): 0.0 Grade (%): 0 HR (bpm): 85 SBP (mmHg): 181 DBP (mmHg): 95 METS: --- Stage: RECOVERY Duration (min): 6 min : 57 sec Speed (mph): 0.0 Grade (%): 0 HR (bpm): 87 SBP (mmHg): 152 DBP (mmHg): 91 METS: --- Stage: RECOVERY Duration (min): 7 min : 9 sec Speed (mph): 0.0 Grade (%): 0 HR (bpm): 88 SBP (mmHg): 152 DBP (mmHg): 91 METS: --- Rest HR: 79 bpm Peak HR: 146 bpm Rest Sys BP: 141 mmHg Peak Sys BP: 202 mmHg Max Pred HR: 148 bpm % Max Pred HR: 99 % Target HR: 126 bpm Max RPP: 29,492 bpm*mmHg Zaldivar Score: -1 Termination Reason: Reached target heart rate or workload Cardiac Symptoms: Shortness of breath Max ST Seg Deviation: 1.20 mm Total Time: 5 min : 2 sec Rest Blas BP: 86 mmHg Peak Blas BP: 124 mmHg Angina Score: None Total METS: 7.1 Resting ECG Sinus rhythm, consider anterior infarct. Stress ECG No ST changes. Arrhythmias None. Report Signatures
== END 2025-08-12 08:08 | disposition home or self-care (01) ==
LOC: ANHCARD 08:08
PROVIDERS: PCP Family Medicine; Visit Provider Family Medicine
DX: R94.31 Abnormal electrocardiogram [ECG] [EKG] (principal); I10 Essential (primary) hypertension; Z01.818 Encounter for other preprocedural examination
CPT/HCPCS: 93017

== ENCOUNTER 2025-08-26 11:30 | Outpatient (CLI) | payer MEDICARE, SELFPAY ==
[2025-08-26 13:47] LABS: Hematocrit 44.3 % (42.0-52.0); Hemoglobin 14.4 g/dL (14.0-18.0); Immature Granulocyte Percent A 0.4 % (0-0.5); Lymphocytes Absolute Auto 1.59 K/mm3 (0.9-3.2); Mean Corpuscular HGB Conc 32.5 g/dl (32-36); Mean Corpuscular Hemoglobin 27.4 pg (26-34); Mean Corpuscular Volume 84.2 fl (80-100); Nucleated Red Blood Cells Absolute Auto 0.000 K/mm3 (0.0-0.012); Nucleated Red Blood Cells Perc 0.0 % (0.0-0.2); Platelet Count Result 283 k/mm3 (150-375); Red Blood Count 5.26 M/mm3 (4.6-6.20); White Blood Count 9.2 K/mm3 (4.5-10.0)
[2025-08-26 13:52] LABS: INR 1.0; Partial Thromboplastin Time 30.1 Seconds (22.3-36.8); Prothrombin Time 13.6 Seconds (11.1-14.7)
[2025-08-26 14:09] LABS: Albumin Level 4.6 g/dL (3.5-5.1); Anion Gap 8 mmol/L (4-12); Blood Urea Nitrogen 19 mg/dL (9-20); Calcium 9.4 mg/dL (8.4-10.2); Carbon Dioxide 31 mmol/L (22-30); Chloride 102 mmol/L (98-107); Estimated Glomerular Filt Rate > 60; Glucose 119 mg/dL (65-110); Potassium 4.1 mmol/L (3.4-5.0); Sodium 141 mmol/L (137-145)
[2025-08-26 14:22] LABS: Add Urine Microscopic? YES; Appearance Urine Turbid (Clear); Glucose Urine UA Negative (Negative); Leukocyte Esterase Ur 3+ LEU/UL (Negative); Need Manual Microscopic Reviewed; Nitrate Urine Negative (Negative); Specific Grav Ur 1.019 (1.001-1.035)
[2025-08-26 16:06] LABS: MRSA (PCR) NOT DETECTED (NOT DETECTE)
--- OUTSIDE RECORDS SUMMARY | 2025-08-27 11:08 | XMS_ITS | Clinical Summary ---
Author Organization [facility] Address [address] [place] [address] Phone Care Team Providers Care Landscaper Name Role Phone Non-Staff, Physician Primary Care Provider Unava ilable Allergies No known active allergies Medications valsartan-hydro CHLOROthiazide (DIOVAN HCT) 320-25 mg tablet Take 1 Tablet by mouth daily. Active metFORMIN (GLUCOPHAGE) 500 mg tablet Take 500 mg by mouth 2 times daily with meals. Active felodipine (PLENDIL) 10 mg Extended Release 24 hour tablet Take 10 mg by mouth daily. Active cloNIDine HCl (CATAPRES) 0.1 mg tablet Take 0.1 mg by mouth 2 times daily. Active metoprolol succinate (TOPROL XL) 100 mg Extended Release 24 hour tablet Take 100 mg by mouth daily. Active HYDROcodone-ronen taminophen (NORCO) 10-325 mg Tablet Take 1 Tablet by mouth every 4 hours as needed for Pain, Moderate. Max Daily Amount: 6 Tablets 90 Tablet 01/30/2017 Active ondansetron (ZOFRAN ODT) 4 mg Tablet, Rapid Dissolve Take 1 Tablet (4 mg) by mouth every 8 hours as needed for Nausea/Emesis Dissolve tablet on top of tongue, then swallow with saliva.. 45 Tablet 01/30/2017 Active Active Problems Problem Noted Date Diagnosed Date Closed Rajesh fracture 01/28/2017 Immunizations Immunization Administration Dates Next Due (ADACEL/BOOSTRIX)(10 YR UP) TDAP VACCINE, 0.5ML, IM 01/28/2017 Social History Tobacco Use Types Packs/Day Years Used Date Smoking Tobacco: Never Tobacco Cessation:Counseling Given: No Alcohol Use Standard Drinks/Week Comments Yes 0 (1 standard drink = 0.6 oz pur e alcohol) Sex and Gender Information Value Date Recorded Sex Assigned at Not on file Legal Sex Male 4:40 PM CDT Gender Identity Not on file Sexual Orientation Not on file Last Filed Vital Signs Vital Sign Reading Time Taken Comments Blood Pressure 152/110 01/31/2017 3:35 AM CDT Pulse 68 01/31/2017 3:35 AM CDT Temperature 36.3 C (97.3 F) 01/31/2017 3:35 AM CDT Respiratory Rate 18 01/31/2017 3:35 AM CDT Oxygen Saturation 96% 01/31/2017 3:35 AM CDT Inhaled Oxygen Concentration - - Weight 108.3 [...] ) (1 - 1-dose 75+ series) 2027 Insurance [employer] CROSS AND BLUE [place] Advance Directives For more information, please contact: [phone] * Full Code (Latest Code Status on File) Date Activated Date Inactivated Comments 01/28/2017 10:29 PM 01/31/2017 10:33 AM Care Teams Landscaper Relationship Specialty Start Date End Date Non-Staff, Physician NO ADDRESS ON FILE PCP - General 01/28/17
--- OUTSIDE RECORDS SUMMARY | 2025-08-27 11:08 | XMS_ITS | Clinical Summary ---
Author Organization [facility] Address [address] 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
--- OUTSIDE RECORDS SUMMARY | 2025-08-27 11:09 | XMS_ITS | Clinical Summary ---
Author Organization [facility] Address [address] [place] [address] Care Team Providers Care Supervisor Costuming Name Role Phone Unavailable Primary Care Provider [...] Td Vaccines ( 1 - Tdap) 1971 Pneumococcal Vaccine: 50+ Ye ars (1 of 1 - PCV) 2002 Zoster Vaccines (1 of 2) 2002 COVID-19 Vaccine (1 - 2024-2 6 season) 2025 Influenza Adult (#1) 2025 RSV Immunization or 60+ Years (1 - 1-dose 75+ series) 2027 Hepatitis A Vaccines Aged Out No long er eligible based on patient's age to complete this topic Meningococcal B Vaccine Aged Out No l onger eligible based on patient's age to complete this topic Meningococcal Vaccine Aged Out No ekaterina corey eligible based on patient's age to complete this topic RSV Immunizations Under 20 Months Aged Out No longer eligible based on patient's age to complete this topic
--- OUTSIDE RECORDS SUMMARY | 2025-08-27 11:09 | XMS_ITS | Clinical Summary ---
Author Organization [facility] Address [address] [place] [address] Care Team Providers Care Tubing Machine Tender Name Role Phone Brent Villagran MD Primary Care Provider [phone] Source Comments [facility],non-owned Affiliates and Associated Physician Practices is amultiple site organization consisting of ambulatory clinics and hospital sitesin [place], [place], [place] and [place]. This disclosure is being madepursuant to the Care Everywhere program and may not contain all information available regarding this patient. Last updated 18.[facility] Allergies No known active allergies Medications * Be aware that medications may not be up to date on this document. Alwaysverify current medications with the patient. cloNIDine (CATAPRES) 0.1 MG tablet Take 0.1 mg by mouth BID. 06/05/2016 Active Oxymetazoline HCl (NASAL SPRAY) 0.05 % [place] into the nose. 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 Gender Identity Not on file Sexual Orientation [...] EXAM WITH MONOFILAMENT 05/19/2019 DIABETES-HGB A1C 05/19/2019 DIABETES-SERUM CREATININE 05/27/20212019, 05/21/2018, 06/04/2017, Additional history [...] <1.00 [facility] ([facility]) Comment: Test Performed at: [employer] [address] [place] [address] АНДРЕЙ LOPEZ DO,MPH 06/07/2016 9:07 AM CDT 06/07/2016 9:07 AM CDT Mahamed Gray MD LAB - CHEMISTRY OR DERABLES Final Result [facility] ([facility]) [id number] from Last 3 Months or Most Recently Relevant to Health Maintenance Insurance MEDICARE MEDICARE ANTHEM Care Teams Tubing Machine Tender Relationship Specialty Start Date End Date Brent Villagran MD [address] [place] [address] PCP - General 12/30/15
== END 2025-08-26 11:31 | disposition home or self-care (01) ==
LOC: ANHSURGERY 11:38
PROVIDERS: PCP Family Medicine; Visit Provider Orthopaedic Surgery
DX: M17.12 Unilateral primary osteoarthritis, left knee (principal); N28.9 Disorder of kidney and ureter, unspecified; Z01.818 Encounter for other preprocedural examination
CPT/HCPCS: 36415; 80048; 80307; 81001; 82040; 85025; 85610; 85730; 86850; 86900; 86901; 87086; 87641

== ENCOUNTER 2025-09-02 01:06 | Day surgery (SDC) | payer MEDICARE, SELFPAY ==
--- OUTSIDE RECORDS SUMMARY | 2024-11-03 03:45 | XMS_ITS | Continuity of Care Document ---
Author Organization [facility] Address [address] [place] [address] Phone Care Team Providers Care Horticultural Nursery Assistant Name Role Phone Shena NASH, Musa Unavailable Unavaila ble Allergies, Adverse Reactions, Alerts Substance Reaction Status Criticality No Known Allergies Active No Inform ation Medications Medication Instructions Dosage Effective Dates (start - stop) Status Comments felodipine ER 5 mg tablet,extended release 24 hr take 1 tablet by oral route every day 5 MG - Active hydralazine 25 mg tablet take 1 tablet by oral route 2 times every day with food 25 MG - Active Rybelsus 7 mg tablet take 1 tablet by oral route every day in the morning 30 min before any food, drink or medication with no more than 4 oz plain water 7 MG - Active magnesium (unknown strength) Not Available - Active zinc (unknown strength) Not Available - Active VALSARTAN (unknown strength) take 20 milliliter by oral route 2 times every day Not Available - Active tumeric (unknown strength) Not Available - Active metoprolol (unknown strength) Not Available - Active flax seed oil (unknown strength) Not Available - Active CLONIDINE (unknown strength) apply 1 patch by transdermal route every week Not Available - Active metformin (unknown strength) Not Available - Active FISH OIL (unknown strength) Not Available - Active B-12 (unknown strength) Not Available - Active ALEVE (unknown strength) take 1 by Oral route once Not Available - Active CENTRUM (unknown strength) Not Available - Active ASPIRIN EC (unknown strength) take 1 tablet by oral route every day Not Available - Active Procedures Procedure Date CATARACT SURGERY, COMPLEX Pt Not Seen Enc Created In Error 2023 OPHTHALMIC BIOMETRY OFFICE/OUTPATIENT VISIT, EST PHARMACY IMPRIMIS OFFICE/OUTPATIENT VISIT, NEW OPHTHALMIC BIOMETRY LT OPSCPY EXTND RTA DRAW UNI/BI PHARMACY 2 EYES Advance Directives Directive Yes / No Effective Date File Name No Information Encounters Encounter Description Practice Location Reason(s) For Visit Diagnoses Date Provider Providers Copied on Encounter [facility], [address] [place] [address], [id number], tel:[phone] [facility] No Information 5 Krjocelynn Musa. [address] , [address], [place], [place], [id number], [place]. tel:[phone] Referring Provider: Lidya Buchanan OD, [address] [place] [address], [id number] . tel:[phone] [facility], [address] [place] [address], [id number], tel:[phone] [facility] No Information 4 Krishnasamy Musa. [address] , [address], [place], [place], [id number], [place]. tel:[phone] Referring Provider: Lidya Buchanan OD, [address] [place] [address], [id number] . tel:[phone] OFFICE/OUTPA TIENT VISIT, [facility], [address] [place] [address], [id number], tel:[phone] [facility] cataract (chief complaint) DM (chief complaint) Posterior subcapsular polar age-related cataract, left eyeOther secondary cataract, right eyeType 2 diabetes mellitus without complicationsV itreous degeneration, bilateralTear film insufficiency of bilateral lacrimal glandsDermatoc halasis of unspecified eye, unspecified eyelidPresence of intraocular lensAge-relate d nuclear cataract, left eyeHyperopia of both eyes 4 Krishnasamy Musa. [address], [place], [place], [id number], [place]. tel:[phone] Referring Provider: Lidya Buchanan OD, [address] [place], [address] . tel:[phone] OFFICE/OUTPA TIENT VISIT, [facility], [address], [place], [place], [id number], tel:[phone] [facility] blurry vision (chief complaint) DM II (chief complaint) Tear film insufficiency of bilateral lacrimal glandsAge-rela paulina nuclear cataract, left eyeType 2 diabetes mellitus without complicationsP resence of intraocular lensMyopia, bilateralPoste rior subcapsular polar age-related cataract, left eyeVitreous degeneration, bilateralDerma tochalasis of unspecified eye, unspecified eyelidOther secondary cataract, right eye Shena Musa. [address], [place], [place], [id number], [place]. tel:[phone] Referring Provider: Lidya Buchanan OD, [address] [place], [address] . tel:[phone] Family History Family Member Type Diagnosis Age At Onset Problem No family history of Macular degeneration Problem No family history of [place] a Payers Payer name Insurance type Covered constitution party ID Authoriza tion(s) [place]IC[place] OF [place] MB [id number] [facility] [id number] Social History Type Description Quantity Date Captured Comments Sex Male Smoking Status No Information Chief Complaint And Reason For Visit No Information Reason For Referral Reason For Referral No Information Plan Of Treatment Date Type Action Status Referral Referred To: Lidya Buchanan [address] [place], [id number] Ordered: Referrals: Lidya Buchanan. Evaluate and treat ordered History Of Present Illness Encounter Date Complaint History Of Prese nt Illness cataract The 73 year old male presents for evaluation of cataract. He reports vision is very poor in the left eye. He can see general colors and shapes but no details. He denies flashes but does have floaters in the right eye. He reports the right eye is doing well. He Had CE in 2016 OD OC SK pt DM The patient is p resent for evaluation of DM. A1c 8.0 06/2024since 2014type IImanaged by Dr. Villagran blurry vision The 71 year old male presents for evaluation of blurry vision OS, Pt states when driving its hard for him to see streets signs. Pt notices the decrease VA in OS for about 9 months now. Pt states about [address] Buchanan referred him after seen the dramatic change in VA in OS.Referred by Dr. BuchananPt has had PICOL OD in 2016Ordered OCT ordered DM II The patient is p resent for evaluation of DM II, A1C 10.1 checked about a week ago. Blood sugar 242 checks it every morning at home.Manages by Dr. Chavira Functional Status Date Functional Assessmen t No Information Instructions Date Instruction Additional Infor mation Impression/Plan Related to Type 2 diabetes mellitus without complications Impression/Plan Related to Poste rior subcapsular polar age-related cataract, left eye Impression/Plan Related to Other secondary cataract, right eye Impression/Plan Related to Vitre ous degeneration, bilateral Impression/Plan Related to Tear film insufficiency of bilateral lacrimal glands Impression/Plan Related to Tina tochalasis of unspecified eye, unspecified eyelid Impression/Plan Related to Prese nce of intraocular lens Impression/Plan Related to Hyper opia of both eyes Impression/Plan Related to Age-r elated nuclear cataract, left eye Impression/Plan Related to Tear film insufficiency of bilateral lacrimal glands Impression/Plan Related to Age-r elated nuclear cataract, left eye Impression/Plan Related to Prese nce of intraocular lens Impression/Plan Related to Myopi a, bilateral Impression/Plan Related to Vitre ous degeneration, bilateral Impression/Plan Related to Tina tochalasis of unspecified eye, unspecified eyelid Impression/Plan Related to Poste rior subcapsular polar age-related cataract, left eye Impression/Plan Related to Other secondary cataract, right eye Impression/Plan Related to Type 2 diabetes mellitus without complications Assessments Type Assessment Date No Information Patient Care Teams Name Effective Dates (start - stop) Status Members No Information
[2025-08-26 13:05] VITALS: BP 115/75; PULSE 66; RESP 16; TEMP 36.9; O2SAT 100; BMI 26.5
--- NOTE | 2025-08-26 13:23 | PC.NURSE ---
[facility] has started construction of its new state of the art ER which will open Spring 2026. With this, we anticipate parking may be a challenge for some our surgical patients and families. Parking spaces are limited but are available for all Surgical, obstetrics, and ER patients sharing this lot. If you arrive and find you are having a hard time finding a parking space, please note that we understand the challenges, please drive around the hospital and park near Hospital Entrance 1. When you enter this entrance, you can ask a volunteer to direct or take you back to the surgical waiting area to check in. We appreciate everyone?s understanding of these expected challenges while we build for your future. Report to the Outpatient Waiting Room, entrance under the green pavilion located off [address], at time _0600am on date __09/02/25 . Planned Procedure Time: _0730am .? Time changes happen often and if your time is changed the preop area will call you the afternoon before. - You and your visitor will be asked to self-screen and do not enter if you have any COVID symptoms. Please call surgeon if you need to reschedule. - A mask is optional within the hospital at this time. Patients may have clear liquids (water, carbonated beverages, clear teas, apple juice) until 3 hours prior to surgery with a maximum of 20 ounces. - No food from midnight until time of surgery and no smoking, or chewing tobacco (or any form of nicotine). No chewing gum, candy or mints. (0430am) Take only the following medications with a SIP of water on the morning of surgery: ___Clonidine, Metoprolol, Levothyroxine, Hydralazine Tylenol if needed DO NOT STOP ANY OF YOUR OTHER PRESCRIPTION MEDICATIONS PRIOR TO SURGERY EXCEPT THE FOLLOWING Hold all vitamins and supplements for 3 days per anesthesiologist. Medications to discontinue per physician HOLD ASPIRIN/MOTRIN/NSAIDS for [address] Back Date to take last dose____08/25/25 Please no make-up, nail egyptian, hairspray, perfume, deodorant, or body powder the day of surgery.? No jewelry (including any body piercings) or valuables the day of surgery, leave them at home.? Please take a shower or bath the night before, or the morning of, surgery with an antibacterial soap.? Wear comfortable, loose fitting clothing.? Linus scrub per Bring overnight bag, CPAP, good shoes, walker and phone - Jewelry must be removed prior to entering the operating room.? Rings and piercings that are not removed may be cut off. - The hospital will not accept responsibility for valuables.? - Please leave all valuables, including medications, at home the day of surgery. If you are going home after surgery, a licensed crude oil driver must drive you home.? - NO public transportation without another adult if you receive anesthesia. - We recommend that an adult stay with you for 24 hours following discharge. - We also recommend that you do not drive, make important decision, drink alcoholic beverages, or take any drugs that were not prescribed by your health care provider for at least 24 hours after your discharge time. Follow any additional instructions given to you from your surgeon. Telephone instructions given to _Patient and asked if any additional questions and then verbalized understanding. Patient advised to call surgeon office or pre surgery nurse liaison [phone] if any additional questions.
[2025-09-02] VITALS (14 sets, daily range): BP systolic 125–158; BP diastolic 75–98; PULSE 71–78; RESP 10–18; TEMP 35.8–37.1; O2SAT 92–99; BMI 26.0
--- NOTE | ~2025-09-02 | XR_ITS ---
EXAMINATION: [id number] DATE: 09/02/2025 10:50 INDICATION: Postoperative evaluation following left total knee arthroplasty. TECHNIQUE: Anteroposterior and lateral views of the left knee were obtained. COMPARISON: None. FINDINGS: Left total knee arthroplasty without patellar resurfacing appears well seated and in near anatomic alignment. No fractures identified. Expected postoperative subcutaneous, intramedullary and intra-articular gas. IMPRESSION: 1. Left total knee arthroplasty, negative for postoperative purposes. Reviewed, dictated and finalized at location A. [employer]
--- OUTSIDE RECORDS SUMMARY | 2025-09-02 01:10 | XMS_ITS | Clinical Summary ---
Author Organization [facility] [employer] [facility] Address [address] [place] [address] Care Team Providers Care Managed Care Nurse Name Role Phone Brent Villagran MD Primary Care Provider [phone] Source Comments [facility] [employer],non-owned Affiliates and Associated Physician Practices is amultiple site organization consisting of ambulatory clinics and hospital sitesin [place] and [place]. This disclosure is being madepursuant to the Care Everywhere program and may not contain all information available regarding this patient. Last updated 18.[facility] [employer] Allergies No known active allergies Medications * Be aware that medications may not be up to date on this document. Alwaysverify current medications with the patient. cloNIDine (CATAPRES) 0.1 MG tablet Take 0.1 mg by mouth BID. 06/05/2016 Active Oxymetazoline HCl (NASAL SPRAY) 0.05 % [place] into the nose. 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
--- OUTSIDE RECORDS SUMMARY | 2025-09-02 01:10 | XMS_ITS | Clinical Summary ---
Author Organization [facility] Address [address] 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
--- OUTSIDE RECORDS SUMMARY | 2025-09-02 01:10 | XMS_ITS | Clinical Summary ---
Author Organization [facility] Address [address] [place] [address] Care Team Providers Care Regulatory Auditor Name Role Phone Unavailable Primary Care Provider [...]
[2025-09-02] MEDS: ACETAMINOPHEN 500 MG TABLET 1000 MG PO (06:15)
[2025-09-02] MEDS: TRANEXAMIC ACID 1,000MG/ISO100 1,000 MG/100 ML BAG 200 MG IVPB (06:40)
--- NOTE | 2025-09-02 06:41 | WPDANESEPPF ---
Anes - Initial Pre Proc Eval Procedure: Operation Date: 09/02/25 07:30 Proposed Procedures p Left Total Knee Arthroplasty - Amaury Back MD Date/Time: 09/02/25 06:41 Surgeon: Amaury Back MD Pre Op Diagnosis: lt knee djd Patient Data Age: 74 Gender: M Height: 1.93 m Weight: 98.9 kg Last Vital Signs Temp 36.9 C 08/26/25 13:05 Pulse 66 08/26/25 13:05 Resp 16 08/26/25 13:05 BP 115/75 08/26/25 13:05 Pulse Ox 100 08/26/25 13:05 O2 Del Method Room Air 08/26/25 13:05 Allergies Allergy/AdvReac Type Severity Reaction Status Date / Time No Known Drug Allergies Allergy Unknown Unknown Verified 08/31/25 13:16 empagliflozin (From AdvReac Intermediate UTI's Verified 08/31/25 13:16 Jardiance) Home Medications ?Medication ?Instructions ?Recorded ?Confirmed ?Type aspirin 81 mg tablet,delayed 81 mg PO DAILY 11/01/21 08/31/25 History release pen needle, diabetic 32 gauge x #400 ea 03/02/25 08/31/25 Rx tamsulosin 0.4 mg capsule 0.4 mg PO BID 03/02/25 08/31/25 History levothyroxine 25 mcg tablet 25 mcg PO DAILY #90 tabs 05/16/25 08/31/25 Rx ykuttlvl-nv-nfzhu 300 mcg-K 60 1 tablet PO BID 05/18/25 08/31/25 History mcg-lycop 600 mcg-lutein 300 mcg tablet (Centrum Silver Men) insulin aspart U-100 100 unit/mL 5 unit (0.05 mL) subcut TID 3 06/03/25 08/31/25 Rx (3 mL) subcutaneous pen (Novolog months #27 mL FlexPen U-100 Insulin aspart) insulin glargine 100 unit/mL (3 15 unit (0.15 mL) subcut QAM 3 06/03/25 08/31/25 Rx mL) subcutaneous pen (Basaglar months #15 mL KwikPen U-100 Insulin) atorvastatin 40 mg tablet (Lipitor) 40 mg PO DAILY #90 tabs 07/09/25 08/31/25 Rx blood-glucose sensor (FreeStyle #6 ea 07/09/25 08/31/25 Rx Seven 3 Plus Sensor device) metformin 500 mg tablet 1,000 mg PO BID 07/09/25 08/31/25 History hydralazine 100 mg tablet 50 mg (1/2 x 100 mg) PO BID #60 07/12/25 08/31/25 Rx tabs metoprolol succinate 200 mg 200 mg PO BID #180 tabs 07/13/25 08/31/25 Rx tablet,extended release 24 hr valsartan 320 1 tablet PO BID #120 tabs 07/14/25 08/31/25 Rx mg-hydrochlorothiazide 25 mg tablet clonidine HCl 0.2 mg tablet 0.6 mg (3 x 0.2 mg) PO BID #360 07/19/25 08/31/25 Rx tabs felodipine 10 mg tablet,extended See Rx Instructions .Route 08/08/25 08/31/25 Rx release 24 hr .COMPLEX #90 tabs chlorhexidine gluconate 4 % 1 applic topical ONCE #237 mL 08/21/25 08/31/25 Rx topical liquid (Hibiclens) finasteride 5 mg tablet 5 mg PO DAILY 08/26/25 08/31/25 History fluconazole 100 mg tablet 100 mg PO DAILY Fungal infection 08/31/25 08/31/25 Rx #10 tabs Laboratory Tests 09/02/25 06:13 POC Capillary Glucose 207 H mg/dl (65-105) Patient hx anesthesia problems: post op nausea/vomiting Family hx anesthesia problems: none Results Review: All pre-operative results and documents have been reviewed as part of the pre-operative evaluation. [facility] Past Medical History Medical History Type 2 diabetes mellitus with hyperglycemia, with long-term current use of insulin Uncontrolled diabetes mellitus Uncontrolled hypertension Recurrent UTI Elevated TSH BMI 26.0-26.9,adult BMI 27.0-27.9,adult COVID-19 Primary osteoarthritis, right shoulder Arthritis Left knee DJD BMI 28.0-28.9,adult BMI 29.0-29.9,adult Essential (primary) hypertension Liver disease, unspecified Mixed hyperlipidemia EVELINE (obstructive sleep apnea) Primary osteoarthritis of right knee Type 2 diabetes mellitus without complications Surgical History Surgical History Status post surgical removal of nail matrix of toe History of tonsillectomy History of cholecystectomy H/O adenoidectomy Family History Family History Mother Family history of malignant neoplasm of breast in first degree relative Breast cancer Sibling Hypertension Family history of sleep apnea Father Hypertension Family history of coronary artery disease Heart disease Acute myocardial infarction Sibling Thyroid activity decreased Other Cerebrovascular accident Family history of arthritis Family history of cardiovascular disease Social History Social History Smoking status: Never smoker Second hand tobacco smoke exposure: No Alcohol intake: current Drinks per week: 1 Substance use: never Substance use type: does not use Do You Feel Safe in your Home?: Yes Lack of Transportation: No Lack of Food: Never True Current Housing: I Have Housing Concerned About Future Housing: No Difficulty Paying Gas/Electric Bills: No Difficulty Paying for Meds: No Currently Unemployed: No Education: High School Diploma/GED Difficulty w/ Childcare or Family Care: No Living arrangements: with family Additional living arrangements comments: Occupation/Education: retired Additional occupation/education comments: [employer] Gender identity (if verbalized by the patient): Male Sexual Orientation (if Verbalized by the Patient): Straight or Heterosexual Spiritual care concerns: No Agree to blood products: Yes Anes - Eval Final PreProcedure Day of Procedure 09/02/25 06:41 Patient weight: overweight Heart: regular rate and rhythm Lungs: clear to auscultation Airway: Mallampati scale class II Neurological: alert and oriented Last oral intake: >/= 8 hours ASA classification: III Emergent: no Anesthetic plan: proceed Anesthesia type and monitoring: general LMA and standard monitoring Results Review: All pre-operative results and documents have been reviewed as part of the pre-operative evaluation. Informed Consent: The patient's anesthetic plan and its attendant risks and benefits were discussed with the patient/family/POA. Questions were solicited and answers provided to the satisfaction of the patient/family/POA.
[2025-09-02] MEDS: LACTATED RINGERS 1,000 ML 30 ML IV CONT ×2 (06:58→10:18)
--- NOTE | 2025-09-02 07:06 | WPDANESEPPF ---
Anes - Initial Pre Proc Eval Procedure: Operation Date: 09/02/25 07:30 Proposed Procedures p Left Total Knee Arthroplasty - Amaury Back MD Date/Time: 09/02/25 07:06 Surgeon: Amaury Back MD Pre Op Diagnosis: lt knee djd Patient Data Age: 74 Gender: M Height: 1.93 m Weight: 97 kg Last Vital Signs Temp 37.1 C 09/02/25 06:42 Pulse 78 09/02/25 06:42 Resp 18 09/02/25 06:42 BP 143/91 H 09/02/25 06:42 Pulse Ox 98 09/02/25 06:42 O2 Del Method Room Air 09/02/25 06:42 Allergies Allergy/AdvReac Type Severity Reaction Status Date / Time No Known Drug Allergies Allergy Unknown Unknown Verified 08/31/25 13:16 empagliflozin (From AdvReac Intermediate UTI's Verified 08/31/25 13:16 Jardiance) Home Medications ?Medication ?Instructions ?Recorded ?Confirmed ?Type aspirin 81 mg tablet,delayed 81 mg PO DAILY 11/01/21 08/31/25 History release pen needle, diabetic 32 gauge x #400 ea 03/02/25 08/31/25 Rx tamsulosin 0.4 mg capsule 0.4 mg PO BID 03/02/25 08/31/25 History levothyroxine 25 mcg tablet 25 mcg PO DAILY #90 tabs 05/16/25 08/31/25 Rx nufjxayc-lr-nnxrg 300 mcg-K 60 1 tablet PO BID 05/18/25 08/31/25 History mcg-lycop 600 mcg-lutein 300 mcg tablet (Centrum Silver Men) insulin aspart U-100 100 unit/mL 5 unit (0.05 mL) subcut TID 3 06/03/25 08/31/25 Rx (3 mL) subcutaneous pen (Novolog months #27 mL FlexPen U-100 Insulin aspart) insulin glargine 100 unit/mL (3 15 unit (0.15 mL) subcut QAM 3 06/03/25 08/31/25 Rx mL) subcutaneous pen (Basaglar months #15 mL KwikPen U-100 Insulin) atorvastatin 40 mg tablet (Lipitor) 40 mg PO DAILY #90 tabs 07/09/25 08/31/25 Rx blood-glucose sensor (FreeStyle #6 ea 07/09/25 08/31/25 Rx Seven 3 Plus Sensor device) metformin 500 mg tablet 1,000 mg PO BID 07/09/25 08/31/25 History hydralazine 100 mg tablet 50 mg (1/2 x 100 mg) PO BID #60 07/12/25 08/31/25 Rx tabs metoprolol succinate 200 mg 200 mg PO BID #180 tabs 07/13/25 08/31/25 Rx tablet,extended release 24 hr valsartan 320 1 tablet PO BID #120 tabs 07/14/25 08/31/25 Rx mg-hydrochlorothiazide 25 mg tablet clonidine HCl 0.2 mg tablet 0.6 mg (3 x 0.2 mg) PO BID #360 07/19/25 08/31/25 Rx tabs felodipine 10 mg tablet,extended See Rx Instructions .Route 08/08/25 08/31/25 Rx release 24 hr .COMPLEX #90 tabs chlorhexidine gluconate 4 % 1 applic topical ONCE #237 mL 08/21/25 08/31/25 Rx topical liquid (Hibiclens) finasteride 5 mg tablet 5 mg PO DAILY 08/26/25 08/31/25 History fluconazole 100 mg tablet 100 mg PO DAILY Fungal infection 08/31/25 08/31/25 Rx #10 tabs Laboratory Tests 09/02/25 06:13 POC Capillary Glucose 207 H mg/dl (65-105) Patient hx anesthesia problems: post op nausea/vomiting Family hx anesthesia problems: none Results Review: All pre-operative results and documents have been reviewed as part of the pre-operative evaluation. [facility] Past Medical History Medical History Type 2 diabetes mellitus with hyperglycemia, with long-term current use of insulin Uncontrolled diabetes mellitus Uncontrolled hypertension Recurrent UTI Elevated TSH BMI 26.0-26.9,adult BMI 27.0-27.9,adult COVID-19 Primary osteoarthritis, right shoulder Arthritis Left knee DJD BMI 28.0-28.9,adult BMI 29.0-29.9,adult Essential (primary) hypertension Liver disease, unspecified Mixed hyperlipidemia EVELINE (obstructive sleep apnea) Primary osteoarthritis of right knee Type 2 diabetes mellitus without complications Surgical History Surgical History Status post surgical removal of nail matrix of toe History of tonsillectomy History of cholecystectomy H/O adenoidectomy Family History Family History Mother Family history of malignant neoplasm of breast in first degree relative Breast cancer Sibling Hypertension Family history of sleep apnea Father Hypertension Family history of coronary artery disease Heart disease Acute myocardial infarction Sibling Thyroid activity decreased Other Cerebrovascular accident Family history of arthritis Family history of cardiovascular disease Social History Social History Smoking status: Never smoker Second hand tobacco smoke exposure: No Alcohol intake: current Drinks per week: 1 Substance use: never Substance use type: does not use Do You Feel Safe in your Home?: Yes Lack of Transportation: No Lack of Food: Never True Current Housing: I Have Housing Concerned About Future Housing: No Difficulty Paying Gas/Electric Bills: No Difficulty Paying for Meds: No Currently Unemployed: No Education: High School Diploma/GED Difficulty w/ Childcare or Family Care: No Living arrangements: with family Additional living arrangements comments: Occupation/Education: retired Additional occupation/education comments: [employer] Gender identity (if verbalized by the patient): Male Sexual Orientation (if Verbalized by the Patient): Straight or Heterosexual Spiritual care concerns: No Agree to blood products: Yes Anes - Eval Final PreProcedure Day of Procedure 09/02/25 07:06 Patient weight: overweight Heart: regular rate and rhythm Lungs: clear to auscultation Airway: Mallampati scale class III Neurological: alert and oriented Last oral intake: >/= 8 hours ASA classification: III Emergent: no Anesthetic plan: proceed Anesthesia type and monitoring: general LMA and standard monitoring Results Review: All pre-operative results and documents have been reviewed as part of the pre-operative evaluation. Informed Consent: The patient's anesthetic plan and its attendant risks and benefits were discussed with the patient/family/POA. Questions were solicited and answers provided to the satisfaction of the patient/family/POA.
--- NOTE | 2025-09-02 07:17 | WPDHPUPDATE1 ---
History and Physical Update Update Date/Time: 09/02/25 07:17 History and Physical has been reviewed, including an updated exam of the patient. There are NO changes in the patient's condition. Risks, benefits, and alternatives have been discussed and questions answered. Patient agrees to proceed with procedure.
[2025-09-02] MEDS: INSULIN HUMAN REGULAR (*BKC) 100 UNITS/ML SUB-Q (07:30)
[2025-09-02] MEDS: ceFAZolin 2 GM in SODIUM CHLORIDE 0.9% IV 50 ML 100 ML IVPB ×2 (07:34→16:21)
[2025-09-02] MEDS: SODIUM CHLORIDE 0.9% IV 37.7 ML, MORPHINE SULFATE INJ (*CRX) 2 MG, ROPivacaine HCL 1% 2... INFILTRATE (07:34)
[2025-09-02] MEDS: GENTAMICIN BONE CEMENT REFOBACIN 1 EACH TOPICAL (08:57)
[2025-09-02] MEDS: TRANEXAMIC ACID 1,000 MG/10 ML AMPUL 1000 MG IV PUSH (09:26)
--- NOTE | 2025-09-02 10:52 | P.OP_ITS ---
Procedure Note - Detailed Date of Procedure 09/02/25 Pre-op Diagnosis lt knee djd Post-op Diagnosis Same Procedure Performed L TKA Surgeon Amaury Back MD Anesthesia General Description of Procedure THE LEFT KNEE WAS PREPPED AND DRAPED IN THE STERILE FASHION. THERE WAS A 10 DEGREE FLEXION CONTRACTURE. A MIDLINE SKIN INCISION WAS MADE. A MEDIAL PARAPATELLAR ARTHROTOMY WAS MADE. THE PATELLA WAS EVERTED. THERE WAS TRICOMPARTMENT DJD. THERE WAS MINIMAL PATELLA DJD. AN INTRAMEDULLARY KIET WAS PLACED IN THE FEMUR. A DISTAL FEMORAL CUT WAS MADE IN 5 DEGREES OF VALGUS REMOVING APPROXIMATELY 9 MM OF BONE FROM THE DISTAL FEMUR. THE FEMUR WAS SIZED TO 70. A 70 FEMORAL CUTTING BLOCK WAS PLACED IN 3 DEGREES OF EXTERNAL ROTATION AND IN ALIGNMENT WITH PAULA'S LINE AND THE TRANSEPICONDYLAR AXIS. ANTERIOR POSTERIOR AND CHAMFER CUTS WERE MADE. THE CUTS WERE EXCELLENT. NEXT AN INTRAMEDULLARY CUTTING GUIDE WAS PLACED IN THE TIBIA. A TRANS TIBIAL CUT WAS MADE ALONG THE LONG AXIS OF THE TIBIA. APPROXIMATELY 10 MM OF BONE WAS REMOVED FROM THE HIGH SIDE OF THE TIBIA. THE TIBIA WAS THEN PLANED TO A SMOOTH SURFACE. POSTERIOR FEMORAL OSTEOPHYTES WERE REMOVED FROM THE FEMORAL CONDYLES. AN 83 TIBIAL TRIAL WAS PLACED IN ALIGNMENT WITH THE 1/3 MEDIAL ASPECT OF THE TIBIAL TUBERCLE. THEN A 70 FEMORAL TRIAL COMPONENT WAS PLACED. BOTH HAD EXCELLENT FITS. EVENTUALLY AN 11 MM POLYETHYLENE TRIAL COMPONENT WAS PLACED. THE KNEE WAS TAKEN THROUGH A RANGE OF MOTION. THE KNEE CAME OUT TO FULL EXTENSION. THERE WAS NO ABNORMAL TILT TO THE PATELLA. THERE WAS GOOD A/P AND VARUS/VALGUS STABILITY. THERE WAS NO EXCESSIVE ROLL BACK WITH FLEXION. THE TRIAL COMPONENTS WERE REMOVED. THEN A 70 FEMORAL COMPONENT AND 83 TIBIAL COMPONENT WITH AN 11 POLYETHYLENE COMPONENT WERE CEMENTED INTO PLACE. ONCE THE CEMENT WAS HARD THE KNEE WAS TAKEN THROUGH A ROM AGAIN AND FOUND TO BE STABLE WITH NO PATELLA TILT NO EXCESSIVE ROLL BACK WITH FLEXION AND GOOD STABILITY WITH COMPLETE AND FULL EXTENSION. THE KNEE WAS IRRIGATED WITH STERILE BETADINE AND WATER FOR ABOUT 3 MINUTES. THE BLEEDERS WERE CAUTERIZED. THE ARTHROTOMY WAS REPAIRED WITH NUMBER 1 VICRYL. THE SUB CUTANEOUS LAYER WITH 2-0 VICRYL AND THE SKIN WITH 3-0 QUIL AND DERMABOND. THE WOUND WAS WASHED AND A STERILE DRESSING WAS APPLIED. SILVIANO T WAS EXTUBATED. Estimated Blood Loss -150.0 Pathology None sent Complications No immediate complications Condition Stable Disposition PACU
--- NOTE | 2025-09-02 11:59 | PC.NURSE ---
pt arrived to room 315-1 from PACU at 1150
[2025-09-02] MEDS: KETOROLAC 15 MG/ML VIAL (*BKC) IV PUSH (13:14)
[2025-09-02] MEDS: ATORVASTATIN 40 MG TABLET PO (13:14)
[2025-09-02] MEDS: FINASTERIDE 5 MG TABLET PO (13:14)
[2025-09-02] MEDS: oxyCODONE/ACETAMINOPHEN (*CRX) 10-325 MG TABLET 1 TAB PO (15:30)
[2025-09-02] MEDS: TAMSULOSIN HCL 0.4 MG CAPSULE PO (16:20)
[2025-09-02] MEDS: SENNA/DOCUSATE SODIUM TABLET 2 TAB PO (16:20)
--- NOTE | 2025-09-02 17:29 | PM.PNORT ---
Progress Note: A&P Assessment and Plan (1) Left knee DJD: Code(s): M17.12 - Unilateral primary osteoarthritis, left knee Status: Acute Assessment and Plan: POSTOP LEFT TKA STABLE AND DOING WELL. HE WISHES TO GO HOME. HE WILL F/U IN 3 WEEKS. Subjective Subjective Date/Time Seen: 09/02/25 17:29 Interval history: POSTOP LEFT TKA DOING WELL. HE HAS MINIMAL PAIN. HE IS NV INTACT. HE IS DOING WELL WITH PT. HE WOULD LOLE TO GO HOME TODAY. HE HAS PASSED PT WELL. Exam Extrem: Other: VSS AFEBRILE DRESSING DRY NV INTACT NEG HOMANS SIGN, CALF SOFT NON TENDER NV INTACT, THIGH SOFT Objective Data Vital Signs Vital Signs: Vital Signs - 24 hr 09/02/25 06:42 09/02/25 10:18 09/02/25 10:30 Temperature 37.1 C 36.1 C L Pulse Rate 78 72 72 Respiratory Rate 18 15 10 L Blood Pressure 143/91 H 125/75 130/82 Pulse Oximetry 98 95 97 Oxygen Delivery Room Air Simple Face Mask Simple Face Mask Oxygen Flow Rate 8 8 09/02/25 10:37 09/02/25 10:45 09/02/25 11:00 Temperature Pulse Rate 78 76 75 Respiratory Rate 12 14 14 Blood Pressure 139/83 144/89 H 147/87 H Pulse Oximetry 98 98 93 Oxygen Delivery Simple Face Mask Simple Face Mask Room Air Oxygen Flow Rate 8 8 09/02/25 11:15 09/02/25 11:30 09/02/25 11:43 Temperature Pulse Rate 75 75 74 Respiratory Rate 14 16 18 Blood Pressure 151/91 H 154/98 H 155/90 H Pulse Oximetry 92 96 94 Oxygen Delivery Nasal Cannula Nasal Cannula Nasal Cannula Oxygen Flow Rate 2 2 2 09/02/25 11:59 09/02/25 12:00 09/02/25 12:15 Temperature 35.8 C L 36.2 C L Pulse Rate 72 71 Respiratory Rate 17 18 Blood Pressure 158/93 H 151/91 H Pulse Oximetry 98 98 97 Oxygen Delivery Room Air Oxygen Flow Rate 09/02/25 12:50 09/02/25 13:46 09/02/25 13:50 Temperature 36.2 C L 36.3 C L Pulse Rate 74 76 Respiratory Rate 17 16 Blood Pressure 149/90 H 147/94 H Pulse Oximetry 96 99 Oxygen Delivery Room Air Oxygen Flow Rate 09/02/25 15:20 Temperature Pulse Rate Respiratory Rate Blood Pressure Pulse Oximetry Oxygen Delivery Room Air Oxygen Flow Rate Intake/Output Intake/Output: Intake & Output 08/30/25 08/31/25 09/01/25 09/02/25 23:59 23:59 23:59 23:59 Intake Total 890 Balance 890 Meds/Results Medications: Active Medications Generic Name Dose Route Start Last Admin Trade Name Freq PRN Reason Stop Dose Admin Acetaminophen 500 mg 09/02/25 11:46 Acetaminophen 500 Mg Tablet PO Q6H PRN Pain Rated 1-3 Aspirin 325 mg 09/02/25 21:00 Aspirin 325 Mg Enteric Tablet PO Q12HR [facility] Atorvastatin Calcium 40 mg 09/02/25 11:46 09/02/25 13:14 Atorvastatin 40 Mg Tablet PO 40 mg DAILY [facility] Administration Clonidine HCl 0.6 mg 09/02/25 17:00 Clonidine Hcl 0.2 Mg Tablet PO BID [facility] Diazepam 5 mg 09/02/25 11:46 Diazepam (*Crx) 5 Mg Tablet PO Q8H PRN Spasms Diphenhydramine HCl 25 mg 09/02/25 11:46 Diphenhydramine Hcl Inj 50 Mg/Ml Vial IV PUSH Q6H PRN Itching Famotidine 20 mg 09/02/25 21:00 Famotidine 20 Mg Tablet PO Q12HR [facility] Felodipine 10 mg 09/03/25 09:00 Felodipine Er 5 Mg Tab PO QAM [facility] Finasteride 5 mg 09/02/25 11:46 09/02/25 13:14 Finasteride 5 Mg Tablet PO 5 mg DAILY [facility] Administration Hydralazine HCl 50 mg 09/02/25 11:46 09/02/25 16:20 Hydralazine Hcl 50 Mg Tablet PO 50 mg BID [facility] Administration Hydromorphone HCl 1 mg 09/02/25 11:46 Hydromorphone Hcl Inj (*Crx) 1 Mg/Ml Syr IV PUSH Q2H PRN Breakthrough Pain Rated 7-10 or NPO Hydromorphone HCl 0.5 mg 09/02/25 11:46 Hydromorphone Hcl Inj (*Crx) 1 Mg/Ml Syr IV PUSH Q2H PRN Breakthrough Pain Rated 4-6 or NPO Cefazolin Sodium 2 gm/ Sodium 50 mls @ 100 mls/hr 09/02/25 16:00 09/02/25 16:21 Chloride IVPB 09/03/25 08:29 100 mls/hr Q8H [facility] Administration Ibuprofen 800 mg in 200 mls @ 400 mls/hr 09/02/25 11:46 Caldolor 800 Mg/200 Ml IVPB Q6H PRN Breakthrough Pain Rated 1-3 or NPO Insulin Aspart 5 units 09/02/25 17:00 Insulin Aspart (*Bkc) 100 Units/Ml SUB-Q ACINSULIN [facility] Insulin Glargine 15 units 09/03/25 09:00 Insulin Glargine (*Bkc) 100 Units/Ml SUB-Q QAM [facility] Ketorolac Tromethamine 15 mg 09/02/25 12:00 09/02/25 13:14 Ketorolac 15 Mg/Ml Vial (*Bkc) IV PUSH 09/03/25 12:01 15 mg Q6HR [facility] Administration Levothyroxine Sodium 25 mcg 09/03/25 06:30 Levothyroxine Sodium 25 Mcg Tablet PO DAILY@0630 [facility] Metformin HCl 1,000 mg 09/02/25 17:00 09/02/25 16:19 Metformin Hcl 500 Mg Tablet PO 1,000 mg BIDWM [facility] Administration Metoprolol Succinate 200 mg 09/02/25 21:00 Metoprolol Succinate Ext Rel 100 Mg Tabcr PO Q12HR [facility] Miscellaneous Information 1 each 09/02/25 00:01 Valsartan/Hctz Ordered Bid. External Home Med Link Is Once Daily. Please Verify Dosing XX 10/02/25 00:00 CLARIFY [facility] Miscellaneous Information 1 each 09/02/25 00:01 Novolog- For The Sliding Scale Portion Of This Order, Low Dose Hospital Protocol Recommend XX 10/02/25 00:00 CLARIFY [facility] Naloxone HCl 0.1 mg 09/02/25 11:46 Naloxone Hcl 0.4 Mg/Ml Vial IV PUSH Q2M PRN Opiate Reversal Non-Formulary Medication 5 unit 09/02/25 11:46 Insulin Aspart U-100 [Novolog Flexpen U-100 Insulin] SUB-Q 10/02/25 11:45 TID [facility] Non-Formulary Medication 1 tablet 09/02/25 11:46 Valsartan-Hydrochlorothiazide PO 10/02/25 11:45 BID [facility] Ondansetron HCl 4 mg 09/02/25 11:46 Ondansetron Inj 4 Mg/2 Ml Vial IV PUSH Q4H PRN Nausea And Vomiting Oxycodone/Acetaminophen 1 tablet 09/02/25 11:46 Oxycodone/Acetaminophen (*Crx) 5-325 Mg Tablet PO Q4H PRN Pain Rated 4-6 Oxycodone/Acetaminophen 1 tab 09/02/25 11:46 09/02/25 15:30 Oxycodone/Acetaminophen (*Crx) 10-325 Mg Tablet PO 1 tab Q6H PRN Administration Pain Rated 7-10 Polyethylene Glycol 17 gm 09/02/25 11:46 09/02/25 13:14 Polyethylene Glycol 3350 17 Gm Powd.Pack PO 17 gm QAM [facility] Administration Senna/Docusate Sodium 2 tab 09/02/25 17:00 09/02/25 16:20 Senna/Docusate Sodium Tablet PO 2 tab BID [facility] Administration Tamsulosin HCl 0.4 mg 09/02/25 17:00 09/02/25 16:20 Tamsulosin Hcl 0.4 Mg Capsule PO 0.4 mg BID [facility] Administration Radiology Results: ITS Impressions Knee X-Ray 09/02/25 10:55 IMPRESSION: 1. Left total knee arthroplasty, negative for postoperative purposes. Labs Labs: Laboratory Results - last 24 hr 09/02/25 09/02/25 09/02/25 06:13 08:49 10:42 POC Capillary Glucose 207 H 165 H 200 H
== END 2025-09-02 18:00 | disposition home health service (06) ==
LOC: ANHSURGERY 05:56 → ANH3MEDSUR 11:48
PROVIDERS: PCP Family Medicine; Visit Provider Orthopaedic Surgery
PROC: (CPT 27447; principal; 2025-09-02 07:30)
DX: M17.12 Unilateral primary osteoarthritis, left knee (principal); E11.9 Type 2 diabetes mellitus without complications
CPT/HCPCS: 27447; 73560; 82948; 97110; 97161; 97165; J0690; A9270; C1713; J0166; J1100; J1171; J1815; J1885; J2003; J2270; J2371; J2405; J2704; J2795; J3010; J3290; J7120